=== PATIENT | female | born 1940 | race Caucasian/White ===

== ENCOUNTER 2018-03-18 15:15 | Emergency (ER) | payer MEDICARE, OTHER ==
[2018-03-18 15:47] VITALS: BP 146/90
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
== END 2018-03-18 17:20 | disposition short-term general hospital (02) ==
LOC: UCEAST 15:15
DX: R51 Headache (principal); M54.2 Cervicalgia; I10 Essential (primary) hypertension; Z88.1 Allergy status to other antibiotic agents; Z88.2 Allergy status to sulfonamides; Z88.8 Allergy status to other drugs, medicaments and biological substances
CPT/HCPCS: 99203; G0463

== ENCOUNTER 2018-03-18 17:42 | Emergency (ER) | payer MEDICARE, OTHER ==
--- NOTE | 2018-03-18 18:44 | RAD ---
EXAM: CT Head Without Intravenous Contrast CLINICAL HISTORY: 78 years old, female; Signs and symptoms; Other: Persistent RUVALCABA since am hrs today; Additional info: Head pain TECHNIQUE: Axial computed tomography images of the head/brain without intravenous contrast. All CT scans at this facility use at least one of these dose optimization techniques: automated exposure control; mA and/or kV adjustment per patient size (includes targeted exams where dose is matched to clinical indication); or iterative reconstruction. COMPARISON: No relevant prior studies available. FINDINGS: Brain: There is low attenuation change in the white matter most consistent with chronic age related small vessel ischemic change. No acute territorial infarction is seen. These can be initially occult on head CT. No hemorrhage. Ventricles: No intracranial bleed, suspicious mass, or mass effect. Ventricles appear unremarkable. Bones/joints: Unremarkable. No acute fracture. Soft tissues: Unremarkable. Sinuses: Unremarkable as visualized. No acute sinusitis. Mastoid air cells: Unremarkable as visualized. No mastoid effusion. IMPRESSION: 1. No intracranial bleed, suspicious mass, or mass effect. Ventricles appear unremarkable. 2. There is low attenuation change in the white matter most consistent with chronic age related small vessel ischemic change. No acute territorial infarction is seen. These can be initially occult on head CT. To contact [facility] with a general question: [facility] - [phone] For direct physician to physician contact: Physician Hotline - [phone] [facility] ([facility] Facility ID #[id number])
[2018-03-18 18:51] LABS: ABS Basophils 0.1 10^3/ul (0-0.2); ABS Eosinophils 0.1 10^3/ul (0-0.6); ABS Lymphocytes 1.2 10^3/ul (1.0-4.8); ABS Monocytes 0.4 10^3/ul (0-0.8); ABS Neutrophils 4.1 10^3/ul (1.5-7.7); ABS Nucleated RBC 0 10^3/ul; Eosinophil % 1.8 % (0-6); Hematocrit 43 % (35-47); Hemoglobin 14.2 g/dl (12.0-16.0); Lymphocyte % 20.2 % (25-47); Mean Corpuscular HGB Conc 33 g/dl (31-36); Mean Corpuscular Hemoglobin 29 pg (27-31); Mean Corpuscular Volume 88 fL (80-97); Mean Platelet Volume 8.7 um3 (7.4-10.4); Nucleated Red Blood Cells % 0.1; Platelet Count 207 10^3/ul (150-450); Red Blood Count 4.82 10^6/ul (4.00-5.40); Red Cell Distribution Width 13 % (10.5-15); White Blood Count 5.9 10^3/ul (3.5-10.8)
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
[2018-03-18] MEDS ORDERED: Ketorolac INJ* 30 MG/ML 1 ML VIAL IV PUSH ONE (18:59)
[2018-03-18 19:07] LABS: EGFR Non-African American 60.1 (>60)
[2018-03-18 19:09] LABS: INR 0.97 (0.77-1.02)
[2018-03-18] MEDS ORDERED: NS 0.9% 1000 ML* 2,000 ML IV SCH (19:15)
[2018-03-18] MEDS ORDERED: Metoclopramide IV* 5 MG/ML 2 ML VIAL IV ONE (20:01)
[2018-03-18] MEDS ORDERED: diPHENhydraMINE PO* 50 MG PO ONE (20:01)
[2018-03-18] MEDS ORDERED: amLODIPine TAB* 5 MG PO ONE (20:02)
[2018-03-18 20:54] LABS: Urine Appearance Cloudy; Urine Blood 1+ (Negative); Urine Color Straw; Urine Ketones Trace (Negative); Urine Protein Negative (Negative); Urine Red Blood Cell Trace(0-2/hpf) (Absent); Urine Specific Gravity 1.006 (1.010-1.030); Urine Urobilinogen Negative (Negative); Urine White Blood Cell Trace(0-5/hpf) (Absent)
[2018-03-18] MEDS ORDERED: Losartan TAB* 25 MG PO ONE (21:15)
[2018-03-18] MEDS ORDERED: Cyclobenzaprine TAB* 10 MG PO ONE (21:16)
[2018-03-18] MEDS ORDERED: oxyCODONE/Acetamin 5/325 MG* TAB PO ONE (21:17)
[2018-03-18] MEDS ORDERED: ALPRAZolam TAB* 0.25 MG PO ONE (21:17)
[2018-03-18] MEDS ORDERED: Morphine VIAL* 10 MG/ML 1 ML VIAL IV ONE (21:59)
[2018-03-18] MEDS ORDERED: Morphine INJ* 4 MG/ML 1 ML SYRINGE (NEW SYRINGE VERSION) ONE (22:36)
[2018-03-18 22:50] VITALS: BP 133/86
== END 2018-03-18 22:48 | disposition home or self-care (01) ==
LOC: ED 17:42
DX: R51 Headache (principal); I10 Essential (primary) hypertension; Z88.1 Allergy status to other antibiotic agents; Z88.2 Allergy status to sulfonamides; Z88.8 Allergy status to other drugs, medicaments and biological substances; M54.2 Cervicalgia
CPT/HCPCS: 36415; 70450; 80053; 81003; 81015; 83605; 85025; 85610; 85652; 86140; 87086; 96374; 96375; 99284; A9270-GY; J1885; J2270; J2765

== ENCOUNTER 2018-09-09 11:16 | Observation (INO) | payer MEDICARE, OTHER ==
--- NOTE | 2018-09-09 11:53 | ED ---
HPI Chest Pain - HPI Summary HPI Summary: This patient is a 78 year old F presenting to [facility] accompanied by her son with a chief complaint of sudden lower jaw pain and chest pressure that woke her at 0300 today. Patient additionally reports mid back pain with this event. At 0300 she took 325 ASA and symptoms resolved. She reports recent illness for the past 9 days that she characterizes as fatigue and weakness with a mild cough. Symptoms are currently resolved. Denies SOB. Medications include Amlodipine and losartan. FMHx pertinent for IA in mother at age 50. Denies PMHx of DVT. - History of Current Complaint Chief Complaint: EDChestPainROMI Time Seen by Provider: 09/09/18 11:41 Hx Obtained From: Patient Onset/Duration: Started Hours Ago, Resolved Initial Severity: Severe Current Severity: None Pain Intensity: 0 Pain Scale Used: 0-10 Numeric Chest Pain Radiates: Yes Chest Pain Radiates To:: Back, Jaw Character: Pressure/Squeezing Aggravating Factor(s): Nothing Alleviating Factor(s): OTC Meds Associated Signs and Symptoms: Positive: Chest Pain, Weakness, Cough. Negative : Shortness of Breath - Allergy/Home Medications Allergies/Adverse Reactions: Allergies Allergy/AdvReac Type Severity Reaction Status Date / Time cefaclor [From Ceclor] Allergy Unknown Verified 09/09/18 11:19 Reaction Details lorazepam [From Ativan] Allergy Insomnia Verified 09/09/18 11:19 Sulfa (Sulfonamide Allergy Blisters Verified 09/09/18 11:19 Antibiotics) Home Medications: Home Medications Hydrocodone/Acetaminophen [Hydrocodone-Acetamin 5-325 mg] 1 - 2 tab PO Q4HR PRN MDD 8 09/09/18 [History Confirmed 09/09/18] Omeprazole 40 mg PO DAILY 09/09/18 [History Confirmed 09/09/18] PMH/Surg Hx/FS Hx/Imm Hx Previously Healthy: No Endocrine/Hematology History: Denies: Hx Anticoagulant Therapy, Hx Diabetes, Hx Thyroid Disease Cardiovascular History: Reports: Hx Hypertension Denies: Hx Pacemaker/ICD Comment Only: Other Cardiovascular Problems/Disorders - vericose vein right Respiratory History: Reports: Hx Chronic Bronchitis - while working, now retiired Denies: Hx Asthma, Hx Chronic Obstructive Pulmonary Disease (COPD) GI History: Denies: Hx Ulcer History: Reports: Hx Kidney Infection, Hx Kidney Stones, Other Problems/ Disorders - left kidney stone w/ stent placement Denies: Hx Renal Disease Musculoskeletal History: Reports: Hx Arthritis Sensory History: Reports: Hx Cataracts, Hx Contacts or Glasses Opthamlomology History: Reports: Hx Cataracts, Hx Contacts or Glasses Neurological History: Reports: Other Neuro Impairments/Disorders Denies: Hx Dementia, Hx Seizures Psychiatric History: Reports: Hx Anxiety Denies: Hx Substance Abuse - Surgical History Surgery Procedure, Year, and Place: Tonsillectomy - child. Appendectomy in ' s. kidney Stent placed 07/03/12, removed 07/07/12,. Vaginal cyst removed Infectious Disease History: No Infectious Disease History: Denies: Hx Clostridium Difficile, Hx Hepatitis, Hx Human Immunodeficiency Virus (HIV), Hx Shingles, Hx Tuberculosis, Traveled Outside the [place] in Last 30 Days - Family History Known Family History: Positive: Cardiac Disease - IA mother age 50, Hypertension - Social History Occupation: Retired Lives: Alone Alcohol Use: None Hx Substance Use: No Substance Use Type: Reports: None Hx Tobacco Use: No Smoking Status (MU): Never Smoked Tobacco Review of Systems Positive: Fatigue Positive: Chest Pain Positive: Cough. Negative: Shortness Of Breath Positive: Myalgia - jaw pain Positive: Weakness All Other Systems Reviewed And Are Negative: Yes Physical Exam - Summary Physical Exam Summary: GENERAL: Patient is a well-developed and nourished female who is lying comfortable in the stretcher. Patient is not in any acute respiratory distress. HEAD AND FACE: Normocephalic EYES: PERRLA, EOMI x 2. EARS: Hearing grossly intact. MOUTH: Oropharynx within normal limits. NECK: Supple, trachea is midline, no adenopathy, no JVD, no carotid bruit. CHEST: Symmetric, no tenderness at palpation LUNGS: Clear to auscultation bilaterally. No wheezing or crackles. CVS: Regular rate and rhythm, S1 and S2 present, no murmurs or gallops appreciated. ABDOMEN: Soft, non-tender. Bowel sounds are normal. No abdominal abnormal pulsations. EXTREMITIES: Full ROM in all major joints, no edema, no cyanosis or clubbing. NEURO: Alert and oriented x 3. No acute neurological deficits. Speech is normal and follows commands. SKIN: Dry and warm Triage Information Reviewed: Yes Vital Signs On Initial Exam: Initial Vitals Temp Pulse Resp BP Pulse Ox 96.9 F 78 14 144/93 98 09/09/18 11:19 09/09/18 11:19 09/09/18 11:19 09/09/18 11:19 09/09/18 11:19 Vital Signs Reviewed: Yes Diagnostics - Vital Signs Vital Signs Temp Pulse Resp BP Pulse Ox 09/09/18 11:19 96.9 F 78 14 144/93 98 - Laboratory Result Diagrams: 09/09/18 12:00 09/09/18 12:00 Lab Statement: Any lab studies that have been ordered have been reviewed, and results considered in the medical decision making process. - Radiology CXR Radiology Interpretation Completed By: Radiologist Summary of Radiographic Findings: IMPRESSION: No evidence for acute disease. ED provider has reviewed this report. - EKG 1138 Cardiac Rate: NL - 72 BPM EKG Rhythm: Sinus Rhythm EKG Comparison: No Significant Change Summary of EKG Findings: incomplete RBBB Chest Pain Course/Dx - Course Course Of Treatment: Pt is a 78 y/o F presenting with CP, mid back pain, and lower jaw pain that woke her at 0300 this date. Denies SOB. FMHx pertinent for IA in mother at age 50. Lab work is unremarkable. CXR is unremarkable. EKG shows NSR with incomplete RBBB. Case discussed with hospitalist, Dr. Davidson, who will admit patient. I discussed results with patient. The patient agrees with this plan. - Diagnoses Provider Diagnoses: Chest pain - Provider Notifications Discussed Care Of Patient With: Tani Davidson - hospitalist Time Discussed With Above Provider: 14:05 Instructed by Provider To: Admit As Inpatient Discharge - Sign-Out/Discharge Documenting (check all that apply): Patient Departure - ADMIT Patient Received Moderate/Deep Sedation with Procedure: No - Discharge Plan Disposition: ADMITTED TO [facility] Referrals: Jason Coelho MD [Primary Care Provider] - - Attestation Statements Document Initiated by Scribe: Yes Documenting Scribe: Courtney De La Cruz Provider For Whom Scribe is Documenting (Include Credential): Zack Reeves MD Scribe Attestation: Courtney Jimenez, scribed for Zack Reeves MD on 09/09/18 at 1406. Status of Scribe Document: Ready
[2018-09-09] MEDS ORDERED: NS 0.9% 1000 ML** 1,000 ML IV ONE (11:54)
[2018-09-09 12:11] LABS: ABS Basophils 0.1 10^3/ul (0-0.2); ABS Eosinophils 0.2 10^3/ul (0-0.6); ABS Lymphocytes 1.2 10^3/ul (1.0-4.8); ABS Monocytes 0.4 10^3/ul (0-0.8); ABS Neutrophils 4.3 10^3/ul (1.5-7.7); ABS Nucleated RBC 0 10^3/ul; Eosinophil % 3.1 %; Hematocrit 41 % (33-41); Hemoglobin 13.6 g/dL (12.0-16.0); Mean Corpuscular HGB Conc 33 g/dL (31-36); Mean Corpuscular Hemoglobin 29 pg (27-31); Mean Corpuscular Volume 89 fL (80-97); Mean Platelet Volume 9.2 fL (7.4-10.4); Nucleated Red Blood Cells % 0.1; Platelet Count 184 10^3/uL (150-450); Red Blood Count 4.61 10^6 /uL (3.70-4.87); Red Cell Distribution Width 14 % (10.5-15); White Blood Count 6.2 10^3/uL (3.5-10.8)
[2018-09-09 12:21] LABS: Activated Partial Thrombo Time 35.3 seconds (26.0-36.3); INR 0.86 (0.77-1.02)
[2018-09-09 12:27] LABS: Albumin 4.1 g/dL (3.2-5.2); Albumin/Globulin Ratio 1.8 (1-3); BUN/Creatinine Ratio 20.5 (8-20); Calcium 8.9 mg/dL (8.6-10.3); EGFR African American 75.6 (>60); EGFR Non-African American 62.5 (>60); Globulin 2.3 g/dL (2-4); Magnesium 2.2 mg/dL (1.9-2.7); Potassium 4.2 mmol/L (3.5-5.0); Total Bilirubin 0.3 mg/dL (0.2-1.0); Total Protein 6.4 g/dL (6.4-8.9)
[2018-09-09 12:28] LABS: Troponin I 0.01 ng/mL (<0.04)
[2018-09-09] MEDS ORDERED: Acetaminophen TAB* 325 MG PO ONE (13:14)
[2018-09-09] MEDS ORDERED: Acetaminophen TAB* 325 MG PO PRN (14:52)
[2018-09-09] MEDS ORDERED: Morphine 4 MG/ML VIAL (1 ml) 4 MG/ML VIAL IV PRN (15:04)
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
[2018-09-09] MEDS: HYDROcodone/ACETAMIN 5-325 MG* 1 TAB PO PRN ×2 (16:55→22:03)
[2018-09-09] MEDS: Heparin VIAL(*) 5000 UNITS/ML VIAL (FIVE THOUSAND) SUBCUT SCH (20:45)
[2018-09-09] MEDS: DICLOFENAC 1% TOPICAL SCH (20:45)
[2018-09-09] MEDS: Losartan TAB* 25 MG PO SCH (21:54)
[2018-09-10] MEDS: HYDROcodone/ACETAMIN 5-325 MG* 1 TAB PO PRN ×3 (03:27→22:44)
[2018-09-10] MEDS: ALPRAZolam TAB* 0.25 MG PO PRN (06:17)
[2018-09-10 06:27] LABS: Hematocrit 40 % (33-41); Hemoglobin 13.3 g/dL (12.0-16.0); Mean Corpuscular HGB Conc 33 g/dL (31-36); Mean Corpuscular Hemoglobin 29 pg (27-31); Mean Corpuscular Volume 89 fL (80-97); Mean Platelet Volume 9.4 fL (7.4-10.4); Platelet Count 167 10^3/uL (150-450); Red Blood Count 4.52 10^6 /uL (3.70-4.87); Red Cell Distribution Width 14 % (10.5-15); White Blood Count 4.7 10^3/uL (3.5-10.8)
[2018-09-10 06:42] LABS: Albumin 3.8 g/dL (3.2-5.2); Albumin/Globulin Ratio 1.8 (1-3); BUN/Creatinine Ratio 20.5 (8-20); Calcium 8.9 mg/dL (8.6-10.3); EGFR African American 93.8 (>60); EGFR Non-African American 77.5 (>60); Globulin 2.1 g/dL (2-4); Magnesium 2.1 mg/dL (1.9-2.7); Phosphorus 4.1 mg/dL (2.5-5.0); Potassium 3.7 mmol/L (3.5-5.0); Total Bilirubin 0.4 mg/dL (0.2-1.0); Total Protein 5.9 g/dL (6.4-8.9)
[2018-09-10] MEDS ORDERED: Losartan TAB* 25 MG PO SCH (09:00)
[2018-09-10] MEDS ORDERED: Aspirin TAB* 325 MG PO ONE (09:00)
[2018-09-10] MEDS: Pantoprazole TAB * 40 MG TAB PO SCH (09:11)
[2018-09-10] MEDS: amLODIPine TAB* 5 MG PO SCH (09:11)
[2018-09-10] MEDS: Heparin VIAL(*) 5000 UNITS/ML VIAL (FIVE THOUSAND) SUBCUT SCH ×3 (09:12→21:35)
--- NOTE | 2018-09-10 15:07 | PN ---
Subjective Date of Service: 09/10/18 Interval History: Pt seen and examined. Meds and labs reviewed. CC: N/A. Mentions she got anxious last time she had her stress test many years ago. Wonders whether there could be something to control her anxiety tomorrow; pt feels tired. ROS: Denied RUVALCABA/dizziness, F/C, N/V, CP, SOB, increased cough, sputum production , abd pain, diarrhea, constipation, dysuria, myalgias, arthralgias, throat pain , and new skin lesions. The rest of the 14 point ROS are unremarkable. PHYSICAL EXAM: GEN APPEARANCE: Awake, not in acute distress HEENT: NC/AT, PERRLA, moist oral mucosa, (-) throat erythema NECK: Soft, supple, (-) cervical LAD, (-)JVD HEART: S1S2 WNL, RRR, No MRG CHEST: CTA, BL, GAE, No W/R/R ABD: Soft, ND/NT, NABS 4x Q EXT: No C/C/E SKIN: Warm to touch PSYCH: No active psychosis, hallucinations, depression, SI/HI Objective Active Medications: Acetaminophen (Tylenol Tab*) 650 mg PO Q6H PRN PRN Reason: Pain/Fever Hydrocodone Bitart/Acetaminophen ([place] 5-325 Tab*) 1 tab PO Q4H PRN PRN Reason: PAIN Last Admin: 09/10/18 14:14 Dose: 1 tab Alprazolam (Xanax Tab*) 0.25 mg PO BID PRN PRN Reason: ANXIETY Last Admin: 09/10/18 06:17 Dose: 0.25 mg Amlodipine Besylate (Norvasc Tab*) 10 mg PO QAM [facility] Last Admin: 09/10/18 09:11 Dose: 10 mg Diclofenac Sodium (Voltaren 1% Gel (Nf)) 1 applic TOPICAL DAILY@2100 ASHISH; Protocol Last Admin: 09/09/18 20:45 Dose: 1 applic Heparin Sodium (Porcine) (Heparin Vial(*)) 5,000 units SUBCUT Q12HR [facility] Last Admin: 09/10/18 09:12 Dose: Not Given Lorazepam (Ativan Inj*) 0.5 mg IV PUSH ONCE [facility] Stop: 09/11/18 07:01 Losartan Potassium (Cozaar Tab*) 50 mg PO BEDTIME [facility] Last Admin: 09/09/18 21:54 Dose: 50 mg Morphine Sulfate (Morphine 4 Mg/Ml Vial (1 Ml)) 0.5 mg IV Q6H PRN PRN Reason: PAIN Pantoprazole Sodium (Protonix Tab*) 40 mg PO DAILY [facility] Last Admin: 09/10/18 09:11 Dose: 40 mg Vital Signs - 8 hr 09/10/18 09/10/18 09/10/18 07:19 08:17 11:44 Temperature 98.0 F 98.0 F Pulse Rate 65 62 Respiratory 16 16 16 Rate Blood Pressure 117/68 132/69 (mmHg) O2 Sat by Pulse 97 98 Oximetry 09/10/18 14:14 Temperature Pulse Rate Respiratory 18 Rate Blood Pressure (mmHg) O2 Sat by Pulse Oximetry Oxygen Devices in Use Now: None Result Diagrams: 09/10/18 05:59 09/10/18 05:59 Microbiology and Other Data: Microbiology 09/09/18 12:13 Aerobic Blood Culture - Preliminary Blood Venous No Growth Day 1 Anaerobic Blood Culture - Preliminary No Growth Day 1 Assess/Plan/Problems-Billing Assessment: - Patient Problems (1) Chest pain Current Visit: Yes Status: Acute Code(s): R07.9 - CHEST PAIN, UNSPECIFIED SNOMED Code(s): 01265192 Comment: -Atypical -Risk scores: LYUDMILA = 1, Heart =4 -Ruled out for ACS -For Pharmacologic stress test in AM (2) Anxiety Current Visit: Yes Status: Acute Code(s): F41.9 - ANXIETY DISORDER, UNSPECIFIED SNOMED Code(s): 45534593 Comment: -Continue Alprazolam -Will Give Ativan IV low dose hr prior to planned stress test -Check TSH in AM given complaint of feeling tired (3) HTN (hypertension) Current Visit: Yes Status: Acute Code(s): I10 - ESSENTIAL (PRIMARY) HYPERTENSION SNOMED Code(s): 72880352 Comment: -Well controlled -Continue current regimen (4) GERD (gastroesophageal reflux disease) Current Visit: Yes Status: Acute Code(s): K21.9 - GASTRO-ESOPHAGEAL REFLUX DISEASE WITHOUT ESOPHAGITIS SNOMED Code(s): 971590460 Comment: -Continue Pantoprazole (5) DVT prophylaxis Current Visit: Yes Status: Acute Code(s): TKE2813 - SNOMED Code(s): 963499761 Comment: -Continue Heparin SQ Status and Disposition: -As above
[2018-09-10] MEDS: DICLOFENAC 1% TOPICAL SCH (21:29)
[2018-09-10] MEDS: Losartan TAB* 25 MG PO SCH (21:32)
[2018-09-11 06:07] LABS: ABS Basophils 0.1 10^3/ul (0-0.2); ABS Eosinophils 0.2 10^3/ul (0-0.6); ABS Lymphocytes 1.6 10^3/ul (1.0-4.8); ABS Monocytes 0.4 10^3/ul (0-0.8); ABS Nucleated RBC 0 10^3/ul; Eosinophil % 4.4 %; Hematocrit 40 % (33-41); Hemoglobin 13.4 g/dL (12.0-16.0); Lymphocyte % 29.7 %; Mean Corpuscular HGB Conc 33 g/dL (31-36); Mean Corpuscular Hemoglobin 30 pg (27-31); Mean Corpuscular Volume 89 fL (80-97); Mean Platelet Volume 8.7 fL (7.4-10.4); Nucleated Red Blood Cells % 0; Platelet Count 186 10^3/uL (150-450); Red Blood Count 4.51 10^6 /uL (3.70-4.87); Red Cell Distribution Width 14 % (10.5-15); White Blood Count 5.3 10^3/uL (3.5-10.8)
[2018-09-11] MEDS: HYDROcodone/ACETAMIN 5-325 MG* 1 TAB PO PRN ×2 (06:10→12:29)
[2018-09-11] MEDS: ALPRAZolam TAB* 0.25 MG PO PRN (06:12)
[2018-09-11 06:23] LABS: Albumin 3.7 g/dL (3.2-5.2); Albumin/Globulin Ratio 1.6 (1-3); EGFR African American 76.6 (>60); EGFR Non-African American 63.3 (>60); Globulin 2.3 g/dL (2-4); Magnesium 2.2 mg/dL (1.9-2.7); Phosphorus 4.5 mg/dL (2.5-5.0); Potassium 3.8 mmol/L (3.5-5.0); Total Bilirubin 0.4 mg/dL (0.2-1.0)
[2018-09-11 06:42] LABS: TSH (Thyroid Stimulating Horm) 4.16 mcIU/mL (0.34-5.60)
[2018-09-11] MEDS ORDERED: LORazepam INJ* 2 MG/ML 1 ML VIAL IV PUSH SCH ×2 (07:00)
[2018-09-11] MEDS: amLODIPine TAB* 5 MG PO SCH (08:04)
[2018-09-11] MEDS: Pantoprazole TAB * 40 MG TAB PO SCH (08:04)
[2018-09-11] MEDS: Heparin VIAL(*) 5000 UNITS/ML VIAL (FIVE THOUSAND) SUBCUT SCH (08:04)
[2018-09-11] MEDS ORDERED: Ondansetron INJ* 2 MG/ML VIAL IV PRN (09:25)
[2018-09-11] MEDS ORDERED: Regadenoson* 0.4 MG/5 ML SYRINGE ONE (12:32)
[2018-09-11 15:48] VITALS: BP 142/73
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
== END 2018-09-11 16:40 | disposition home or self-care (01) | DRG 313 ==
LOC: ED 11:16 → MEDTELE 14:48 → INTOOBSV 09-11 15:41 → OBSVTOIN 09-11 15:41
PROVIDERS: ADMIT Student in an Organized Health Care Education/Training Program; ATTEND Student in an Organized Health Care Education/Training Program
DX: R07.89 Other chest pain (principal); I10 Essential (primary) hypertension; M19.90 Unspecified osteoarthritis, unspecified site; H26.9 Unspecified cataract; Z96.0 Presence of urogenital implants; F41.9 Anxiety disorder, unspecified; I83.91 Asymptomatic varicose veins of right lower extremity; E78.5 Hyperlipidemia, unspecified; J42 Unspecified chronic bronchitis; I45.10 Unspecified right bundle-branch block; K21.9 Gastro-esophageal reflux disease without esophagitis; Z87.442 Personal history of urinary calculi; Z88.2 Allergy status to sulfonamides; Z88.8 Allergy status to other drugs, medicaments and biological substances; Z82.49 Family history of ischemic heart disease and other diseases of the circulatory system
CPT/HCPCS: 36415; 71045; 78452; 80053; 83605; 83735; 83880; 84100; 84443; 84484; 85025; 85027; 85379; 85610; 85730; 87040; 93017; 96372; 96374; 96375; 96376; 99284; A9270-GY; A9502; G0378; G8978-GP-CI; G8979-GP-CI; G8980-GP-CI; J1644; J2785

== ENCOUNTER 2018-11-04 15:19 | Emergency (ER) | payer MEDICARE, OTHER ==
[2018-11-04 15:32] VITALS: BP 145/81
--- NOTE | 2018-11-04 15:36 | UC ---
Complaint Female HPI - HPI Summary HPI Summary: 78 yo female presents with bladder pressure and urinary frequency for the last 3 days. She has had UTIs in the past and states this feels the same. She states that she has many allergies, but macrobid usually works well and she tolerates this well too. Denies fever, chills, abdominal pain, n/v, flank pain. - History Of Current Complaint Chief Complaint: UCGU Stated Complaint: UTI Time Seen by Provider: 11/04/18 15:36 Hx Obtained From: Patient Onset/Duration: Gradual Onset Severity Initially: Mild Severity Currently: Mild Pain Intensity: 2 Pain Scale Used: 0-10 Numeric - Allergies/Home Medications Allergies/Adverse Reactions: Allergies Allergy/AdvReac Type Severity Reaction Status Date / Time amoxicillin Allergy Unknown Verified 11/04/18 15:33 Reaction Details cefaclor [From Ceclor] Allergy Unknown Verified 09/09/18 11:19 Reaction Details cephalexin Allergy Unknown Verified 11/04/18 15:33 Reaction Details latex Allergy Unknown Verified 11/04/18 15:33 Reaction Details Sulfa (Sulfonamide Allergy Blisters Verified 09/09/18 11:19 Antibiotics) lorazepam [From Ativan] AdvReac Insomnia Verified 11/04/18 15:33 vancomycin AdvReac red man Verified 11/04/18 15:33 syndrome Home Medications: Home Medications traMADol TAB* [Ultram*] 50 mg PO Q6HR PRN 11/04/18 [History Confirmed 11/04/18] PMH/Surg Hx/FS Hx/Imm Hx - Additional Past Medical History Additional PMH: Chronic pain Endocrine History: Dyslipidemia Cardiovascular History: Hypertension GI/ History: Gastroesophageal Reflux Psychological History: Anxiety Other History Of: Negative For: Anticoagulant Therapy - Surgical History Surgical History: Yes Surgery Procedure, Year, and Place: Tonsillectomy - child. Appendectomy in . kidney Stent placed 07/03/12, removed 07/07/12,. Vaginal cyst removed. left arm fx w/ screws - 2015. left arm surgery, screws replaced - September 2018 - Family History Known Family History: Positive: Cardiac Disease - [place] mother age 50, Hypertension - Social History Occupation: Retired Alcohol Use: None Substance Use Type: None Smoking Status (MU): Never Smoked Tobacco - Immunization History Most Recent Tetanus Shot: unsure Review of Systems All Other Systems Reviewed And Are Negative: Yes Constitutional: Positive: Negative Skin: Positive: Negative Respiratory: Positive: Negative Cardiovascular: Positive: Negative Genitourinary: Positive: Frequency, Urgency Neurological: Positive: Negative Psychological: Positive: Negative Physical Exam - Summary Physical Exam Summary: GENERAL: NAD. WDWN. No pain distress. SKIN: No rashes, sores, lesions, or open wounds. NECK: Supple. Nontender. No lymphadenopathy. CHEST: CTAB. No r/r/w. No accessory muscle use. Breathing comfortably and in no distress. CV: RRR. Without m/r/g. Pulses intact. Cap refill <2seconds ABDOMEN: Soft. NTTP. No distention or guarding. No CVA tenderness. Bowel sounds present NEURO: Alert. PSYCH: Age appropriate behavior. Triage Information Reviewed: Yes Vital Signs: Initial Vital Signs Temp 98 F 11/04/18 15:27 Pulse 77 11/04/18 15:27 Resp 16 11/04/18 15:27 BP 145/81 11/04/18 15:27 Pulse Ox 98 11/04/18 15:27 Laboratory Tests 11/04/18 15:50 POC Urine Color Yellow POC Urine Clarity Clear POC Urine pH 6.5 POC Ur Specif Phillips 1.010 POC Urine Protein Negative POC Ur Glucose (UA) Negative POC Urine Ketones Negative POC Urine Blood Trace-intact A POC Urine Nitrite Negative POC Urine Bilirubin Negative POC Urine Urobilinogen 0.2 POC U Leukocyte Esteras Trace A Vital Signs Reviewed: Yes Complaint Female Dx - Course Course Of Treatment: UA with trace leuks. Will treat as UTI with macrobid and send urine for culture. - Differential Dx/Diagnosis Provider Diagnosis: UTI (urinary tract infection) Discharge - Sign-Out/Discharge Documenting (check all that apply): Patient Departure All imaging exams completed and their final reports reviewed: No Studies - Discharge Plan Condition: Stable Disposition: HOME Prescriptions: Nitrofurantoin Monohyd/M-Cryst [Macrobid 100 mg Capsule] 100 mg PO BID #14 cap Patient Education Materials: Urinary Tract Infection in Women (ED) Referrals: Jason Coelho MD [Primary Care Provider] - Additional Instructions: If you develop a fever, shortness of breath, chest pain, new or worsening symptoms - please call your PCP or go to the ED immediately. Your blood pressure was slightly elevated at todays visit. Please see your primary provider within 4 weeks for recheck and re-evaluation. - Billing Disposition and Condition Condition: STABLE Disposition: Home
== END 2018-11-04 16:09 | disposition home or self-care (01) ==
LOC: UCEAST 15:19
DX: N39.0 Urinary tract infection, site not specified (principal); I10 Essential (primary) hypertension; K21.9 Gastro-esophageal reflux disease without esophagitis; F41.9 Anxiety disorder, unspecified; E78.5 Hyperlipidemia, unspecified; Z91.040 Latex allergy status
CPT/HCPCS: 81003; 87086; 99212; G0463

== ENCOUNTER 2018-11-07 15:01 | Emergency (ER) | payer MEDICARE, OTHER ==
[2018-11-07 15:15] VITALS: BP 169/84
--- NOTE | 2018-11-07 16:11 | UC ---
Complaint Female HPI - HPI Summary HPI Summary: PATIENT SEEN HERE 3 DAYS AGO AND TREATED FOR PRESUMPTIVE UTI WITH MACROBID. CULTURE WAS NEGATIVE. PATIENT STATES HER SYMPTOMS HAVE BECOME INCREASINGLY WORSE. SHE NOW HAS BACK PAIN AND CONTINUING FREQUENCY/URGENCY AND DYSURIA. NO FEVER BUT IS FEELING CHILLED. NO NAUSEA. - History Of Current Complaint Chief Complaint: UCGU Stated Complaint: UTI Time Seen by Provider: 11/07/18 15:18 Hx Obtained From: Patient Onset/Duration: Gradual Onset, Lasting Days, Still Present Timing: Constant Severity Initially: Moderate Severity Currently: Moderate Pain Intensity: 8 Pain Scale Used: 0-10 Numeric Character: Sharp, Burning Aggravating Factor(s): Urination Alleviating Factor(s): Nothing Associated Signs And Symptoms: Positive: Back Pain. Negative: Fever, Nausea - Allergies/Home Medications Allergies/Adverse Reactions: Allergies Allergy/AdvReac Type Severity Reaction Status Date / Time acetaminophen Allergy Unknown Verified 11/07/18 15:19 [From Tylenol-Codeine #3] Reaction Details amoxicillin Allergy Unknown Verified 11/07/18 15:19 Reaction Details candesartan Allergy Tinnitus Verified 11/07/18 15:19 cefaclor [From Ceclor] Allergy Unknown Verified 11/07/18 15:19 Reaction Details cephalexin Allergy Unknown Verified 11/07/18 15:19 Reaction Details ciprofloxacin Allergy Unknown Verified 11/07/18 15:19 Reaction Details codeine Allergy Unknown Verified 11/07/18 15:19 [From Tylenol-Codeine #3] Reaction Details latex Allergy Unknown Verified 11/07/18 15:19 Reaction Details Sulfa (Sulfonamide Allergy Blisters Verified 11/07/18 15:19 Antibiotics) sulfacetamide Allergy Rash Verified 11/07/18 15:19 lorazepam [From Ativan] AdvReac Insomnia Verified 11/07/18 15:19 vancomycin AdvReac red man Verified 11/07/18 15:19 syndrome Home Medications: Home Medications Hydrocodone/Acetaminophen [Hydrocodone-Acetamin 5-325 mg] 1 tab PO DAILY [History Confirmed 11/07/18] Tramadol HCl 50 mg PO DAILY 11/07/18 [History Confirmed 11/07/18] PMH/Surg Hx/FS Hx/Imm Hx Cardiovascular History: Hypertension Other History Of: Negative For: Anticoagulant Therapy - Surgical History Surgical History: Yes Surgery Procedure, Year, and Place: Tonsillectomy - child. Appendectomy in 20' . kidney Stent placed 07/03/12, removed 07/07/12,. Vaginal cyst removed. left arm fx w/ screws - 2015. left arm surgery, screws replaced - September 2018. bilateral ankle repair - Family History Known Family History: Positive: Cardiac Disease - [place] mother age 50, Hypertension - Social History Alcohol Use: None Substance Use Type: Prescribed Smoking Status (MU): Never Smoked Tobacco - Immunization History Most Recent Tetanus Shot: unsure Review of Systems All Other Systems Reviewed And Are Negative: Yes Constitutional: Positive: Chills Respiratory: Positive: Negative Cardiovascular: Positive: Negative Gastrointestinal: Positive: Negative Genitourinary: Positive: Dysuria, Frequency, Urgency Physical Exam Triage Information Reviewed: Yes Appearance: Well-Nourished, Pain Distress - LOOKS MODERATELY UNCOMFORTABLE Vital Signs: Initial Vital Signs Temp 98.2 F 11/07/18 15:08 Pulse 93 11/07/18 15:08 Resp 18 11/07/18 15:08 BP 169/84 11/07/18 15:08 Pulse Ox 97 11/07/18 15:08 Vital Signs Reviewed: Yes Eyes: Positive: Conjunctiva Clear ENT: Positive: Hearing grossly normal Neck: Positive: Supple Respiratory: Positive: No respiratory distress, No accessory muscle use Cardiovascular: Positive: Pulses Normal Abdomen Description: Positive: Soft, CVA Tenderness (R), Other: - SUPRAPUBIC TENDERNESS. Negative: CVA Tenderness (L), Distended, Guarding Musculoskeletal: Positive: No Edema Neurological: Positive: Alert Psychological: Positive: Age Appropriate Behavior Skin: Negative: Rashes Diagnostics - Radiology CT ABD/PELVIS W/O CONTRAST Radiology Interpretation Completed By: Radiologist Summary of Radiographic Findings: 1. NO RENAL CALCULI OR EVIDENCE FOR HYDRONEPHROSIS. 2. THERE IS THICKENING OF THE WALL OF THE URINARY BLADDER WITH ADJACENT INTERSTITIAL STRANDING SUGGESTING THE POSSIBILITY OF CYSTITIS. RECOMMEND CLINICAL CORRELATION. 3. MODERATE SIZE HIATAL HERNIA AND MODERATE GASTRIC DISTENTION. Complaint Female Dx - Course Course Of Treatment: NO LEUKOCYTES ON URINE DIP TODAY. SENT FOR CULTURE. CT SCAN OBTAINED WHICH SHOWED NO KIDNEY STONE BUT DID SHOW THICKENING OF THE WALL OF THE URINARY BLADDER WITH ADJACENT INTERSTITIAL STRANDING SUGGESTING THE POSSIBILITY OF CYSTITIS. GIVEN HER LACK OF RESPONSE TO THE MACROBID AN ALTERNATIVE URINARY ANTIBIOTIC WAS CONSIDERED HOWEVER GIVEN HER EXTENSIVE LIST OF ALLERGIES THE ONLY APPROPRIATE OPTION IS PLAIN TRIMETHOPRIM. MEDICATION SENT TO PHARMACY. ENCOURAGED TO STAY WELL-HYDRATED. PATIENT ADVISED TO CALL UROLOGY TOMORROW TO SCHEDULE A FOLLOW-UP APPOINTMENT. - Differential Dx/Diagnosis Provider Diagnosis: Cystitis Discharge - Sign-Out/Discharge Documenting (check all that apply): Patient Departure All imaging exams completed and their final reports reviewed: Yes - Discharge Plan Condition: Stable Disposition: HOME Prescriptions: Trimethoprim TAB* 100 mg PO BID #20 tab Patient Education Materials: Urinary Tract Infection in Women (ED) Referrals: Jason Coelho MD [Primary Care Provider] - 1 Week Imtiaz Wen MD [Medical Doctor] - 3 Days Additional Instructions: CT SCAN TODAY SHOWED CHANGES AROUND YOUR BLADDER CONCERNING FOR CYSTITIS. THIS IS TYPICALLY AN INFECTIOUS PROCESS. I DISCUSSED THIS WITH YOUR UROLOGIST AND GIVEN YOUR EXTENSIVE ALLERGIES HE RECOMMENDED YOU TAKE TRIMETHOPRIM TWICE DAILY. TAKE THE MEDICATION FOR THE FULL 10 DAYS. STOP THE MACROBID. CALL DR. WEN'S OFFICE TOMORROW MORNING TO SCHEDULE A FOLLOW-UP APPOINTMENT FOR THIS WEEK. GO TO THE ER WITHOUT FAIL IF YOU DEVELOP WORSENING PAIN, FEVER, NAUSEA, MEGHA BLOOD IN THE URINE OR ANY OTHER CONCERNING SYMPTOMS. YOUR BLOOD PRESSURE WAS ELEVATED TODAY. THIS MAY BE DUE TO YOUR ACUTE CONDITION. MONITOR AND FOLLOW-UP WITH YOUR PCP WITHIN 4 WEEKS IF IT HAS NOT RETURNED TO NORMAL. - Billing Disposition and Condition Condition: STABLE Disposition: Home
== END 2018-11-07 17:35 | disposition home or self-care (01) ==
LOC: UCEAST 15:01
DX: N30.90 Cystitis, unspecified without hematuria (principal); Z88.0 Allergy status to penicillin; Z88.1 Allergy status to other antibiotic agents; Z88.2 Allergy status to sulfonamides; I10 Essential (primary) hypertension
CPT/HCPCS: 74176; 81003; 87086; 99211; G0463

== ENCOUNTER 2018-11-12 11:51 | Emergency (ER) | payer MEDICARE, OTHER ==
--- NOTE | 2018-11-12 12:49 | ED ---
GI/ HPI - HPI Summary HPI Summary: The patient is a 78 y/o F presenting to [facility] with a chief complaint of low back pain and increased urinary frequency starting almost 10 ago with persistence after two visits and prescriptions for . She reports that she had gone to Urgent Care on 11/04, and she was diagnosed with a UTI. She went back on 11/07 because the pain had not dissipated, and she was diagnosed with cystitis and prescribed Trimethoprim by Dr. Gomez, who consulted with Dr. Wen due to the patient's allergies. A CT was done for the findings, and cultures came back negative. She has since not been feeling better although she is currently on her sixth day of the abx. She denies burning with urination. The pain is currently rated 7/10 in severity. She is scheduled for a cystoscopy on 12/05, but she states she cannot much longer with the pain. She has not taken pain medications this morning, but she has taken one 0.25mg Xanax. Hx of kidney infection, kidney stones with stent, HTN, chronic bronchitis, anxiety. Nonsmoker, no EtOH, no substance use. - History of Current Complaint Chief Complaint: EDUrogenitalProblems Time Seen by Provider: 11/12/18 12:36 Stated Complaint: NEED NEW ANTIBODIC Hx Obtained From: Patient Onset/Duration: Started Days Ago - 10, Still Present Timing: Lasting Days Severity: Mild Current Severity: Moderate Pain Intensity: 7 Location of Pain: Other - low back Pain Characteristics: Aching Associated Signs and Symptoms: Positive: Other: - POSITIVE: increased urinary frequency; NEGATIVE: burning with urination - Additional Pertinent History Primary Care Physician: [id number] - Allergy/Home Medications Allergies/Adverse Reactions: Allergies Allergy/AdvReac Type Severity Reaction Status Date / Time acetaminophen Allergy Unknown Verified 11/12/18 12:02 [From Tylenol-Codeine #3] Reaction Details amoxicillin Allergy Unknown Verified 11/12/18 12:02 Reaction Details candesartan Allergy Tinnitus Verified 11/12/18 12:02 cefaclor [From Ceclor] Allergy Unknown Verified 11/12/18 12:02 Reaction Details cephalexin Allergy Unknown Verified 11/12/18 12:02 Reaction Details ciprofloxacin Allergy Unknown Verified 11/12/18 12:02 Reaction Details codeine Allergy Unknown Verified 11/12/18 12:02 [From Tylenol-Codeine #3] Reaction Details Influenza Virus Vaccines Allergy Nausea And Verified 11/12/18 12:02 Vomiting latex Allergy Unknown Verified 11/12/18 12:02 Reaction Details Sulfa (Sulfonamide Allergy Blisters Verified 11/12/18 12:02 Antibiotics) sulfacetamide Allergy Rash Verified 11/12/18 12:02 lorazepam [From Ativan] AdvReac Insomnia Verified 11/12/18 12:02 vancomycin AdvReac red man Verified 11/12/18 12:02 syndrome PMH/Surg Hx/FS Hx/Imm Hx Endocrine/Hematology History: Denies: Hx Anticoagulant Therapy, Hx Diabetes, Hx Thyroid Disease Cardiovascular History: Reports: Hx Hypertension Denies: Hx Hypercholesterolemia, Hx Pacemaker/ICD, Hx Peripheral Vascular Disease Comment Only: Other Cardiovascular Problems/Disorders - vericose vein right Respiratory History: Reports: Hx Chronic Bronchitis - while working, now retiired Denies: Hx Asthma, Hx Chronic Obstructive Pulmonary Disease (COPD) GI History: Denies: Hx Ulcer History: Reports: Hx Kidney Infection, Hx Kidney Stones, Other Problems/ Disorders - left kidney stone w/ stent placement Denies: Hx Renal Disease Musculoskeletal History: Reports: Hx Arthritis Sensory History: Reports: Hx Cataracts, Hx Contacts or Glasses Denies: Hx Hearing Aid Opthamlomology History: Reports: Hx Cataracts, Hx Contacts or Glasses Neurological History: Reports: Other Neuro Impairments/Disorders Denies: Hx Dementia, Hx Seizures, Hx Transient Ischemic Attacks (TIA) Psychiatric History: Reports: Hx Anxiety Denies: Hx Substance Abuse - Surgical History Surgery Procedure, Year, and Place: Tonsillectomy - child. Appendectomy in ' s. kidney Stent placed 07/03/12, removed 07/07/12,. Vaginal cyst removed. left arm fx w/ screws - 2015. left arm surgery, screws replaced - September 2018. bilateral ankle repair Infectious Disease History: No Infectious Disease History: Denies: Hx Clostridium Difficile, Hx Hepatitis, Hx Human Immunodeficiency Virus (HIV), Hx Shingles, Hx Tuberculosis, Traveled Outside the [place] in Last 30 Days - Family History Known Family History: Positive: Cardiac Disease - [place] mother age 50, Hypertension Negative: Diabetes - Social History Alcohol Use: None Hx Substance Use: No Substance Use Type: Reports: Prescribed Hx Tobacco Use: No Smoking Status (MU): Never Smoked Tobacco Do You Chew or Dip Tobacco: No Have You Chewed or Dipped Tobacco in the LAST YEAR: No Have You Smoked in the Last Year: No Review of Systems Positive: frequency - increased . Negative: burning Positive: Other - low back pain All Other Systems Reviewed And Are Negative: Yes Physical Exam - Summary Physical Exam Summary: VITAL SIGNS: Reviewed. GENERAL: Patient is a well-developed and nourished female who is lying comfortable in the stretcher. Patient is not in any acute respiratory distress. HEAD AND FACE: No signs of trauma. No ecchymosis, hematomas or skull depressions. No sinus tenderness. EYES: PERRLA, EOMI x 2, No injected conjunctiva, no nystagmus. EARS: Hearing grossly intact. Ear canals and tympanic membranes are within normal limits. MOUTH: Oropharynx within normal limits. NECK: Supple, trachea is midline, no adenopathy, no JVD, no carotid bruit, no c- spine tenderness, neck with full ROM. CHEST: Symmetric, no tenderness at palpation LUNGS: Clear to auscultation bilaterally. No wheezing or crackles. CVS: Regular rate and rhythm, S1 and S2 present, no murmurs or gallops appreciated. ABDOMEN: Soft, non-tender. No signs of distention. No rebound no guarding, and no masses palpated. Bowel sounds are normal. EXTREMITIES: FROM in all major joints, no edema, no cyanosis or clubbing. NEURO: Alert and oriented x 3. No acute neurological deficits. Speech is normal and follows commands. SKIN: Dry and warm. Triage Information Reviewed: Yes Vital Signs On Initial Exam: Initial Vitals Temp Pulse Resp BP Pulse Ox 98.8 F 89 18 166/93 95 11/12/18 11:56 11/12/18 11:56 11/12/18 11:56 11/12/18 11:56 11/12/18 11:56 Vital Signs Reviewed: Yes Diagnostics - Vital Signs Vital Signs Temp Pulse Resp BP Pulse Ox 11/12/18 11:56 98.8 F 89 18 166/93 95 - Laboratory Result Diagrams: 11/12/18 12:49 11/12/18 12:49 Lab Statement: Any lab studies that have been ordered have been reviewed, and results considered in the medical decision making process. Re-Evaluation - Re-Evaluation First Eval Re-Evaluation Time: 14:00 Change: Improved Comment: I discussed discharge with the patient. She is feeling better. GIGU Course/Dx - Course Assessment/Plan: The patient is a 78 y/o F presenting to [facility] with a chief complaint of low back pain and increased urinary frequency starting almost 10 ago with persistence after two visits and prescriptions for . She reports that she had gone to Urgent Care on 11/04, and she was diagnosed with a UTI. She went back on 11/07 because the pain had not dissipated, and she was diagnosed with cystitis and prescribed Trimethoprim by Dr. Gomez, who consulted with Dr. Wen due to the patient's allergies. A CT was done for the findings , and cultures came back negative. She has since not been feeling better although she is currently on her sixth day of the abx. She denies burning with urination. The pain is currently rated 7/10 in severity. She is scheduled for a cystoscopy on 12/05, but she states she cannot much longer with the pain. She has not taken pain medications this morning, but she has taken one 0.25mg Xanax. Hx of kidney infection, kidney stones with stent, HTN, chronic bronchitis , anxiety. Nonsmoker, no EtOH, no substance use. Blood tests without any significant abnormality except for creatinine of 1.02, glucose of 129, and urinalysis with positive nitrates, therefore indicating a positive UTI. In the ED course, the patient was given IV fluids. I discussed the case with Dr. Wen, who is her urologist, and he recommends for the patient to be given a dose of gentamicin over 160 mg IV and discharge the patient home with a prescription for doxycycline 100 mg twice a day. At this point the patient will be discharged home on follow-up with Dr. Wen for further workup and management. I discussed all the findings and test results with the patient. Patient was instructed to return to the emergency room immediately if any of the symptoms return worsens. Plan of care was discussed with the patient and understands and agrees. All questions were answered at patient satisfaction. There were no further complaints or concerns. Lung exam before discharge: CTA B/ L. Good air exchange. No wheezing or crackles heard. CVS: S1 and S2 present. No murmurs appreciated. Patient is alert and oriented x 3. Patient is hemodynamically stable. Patient will be discharged home with follow up PCP in the next 2-3 days. - Diagnoses Provider Diagnoses: UTI (urinary tract infection) - Physician Notifications Discussed Care Of Patient With: Imtiaz Wen - urology Time Discussed With Above Provider: 12:52 Instructed by Provider To: Other - I discussed the case with Dr. Wen because he is aware of the patient's concerns to this point. He advises lab workup on the patient and a call back with results. At 1355, I spoke with Dr. Wen again, and he suggets IV gentamicin, and discharge home with doxycycline for UTI treatment. Discharge - Sign-Out/Discharge Documenting (check all that apply): Patient Departure - Patient will be discharged home. Patient Received Moderate/Deep Sedation with Procedure: No - Discharge Plan Condition: Stable Disposition: HOME Prescriptions: DOXYcycline CAP(*) [DOXYcycline 100MG CAP(*)] 100 mg PO BID #20 cap Patient Education Materials: Urinary Tract Infection in Women (DC) Referrals: Jason Coelho MD [Primary Care Provider] - 3 Days Additional Instructions: Please take medications as prescribed. Follow up with your primary care provider in 2-3 days. RETURN TO THE EMERGENCY DEPARTMENT FOR ANY NEW OR WORSENING SYMPTOMS. - Billing Disposition and Condition Condition: STABLE Disposition: Home - Attestation Statements Document Initiated by Sofya: Yes Documenting Scribe: Leila Garcia Provider For Whom Sofya is Documenting (Include Credential): Dr. Evelio Santos MD Scribe Attestation: Leila Jimenez scribed for Dr. Evelio Santos MD on 11/12/18 at 1520. Scribe Documentation Reviewed: Yes Provider Attestation: The documentation as recorded by the Leila apvon accurately reflects the service I personally performed and the decisions made by me, Dr. Evelio Santos MD Status of Scribe Document: Ready
[2018-11-12 12:58] LABS: ABS Eosinophils 0.1 10^3/ul (0-0.6); ABS Lymphocytes 1.4 10^3/ul (1.0-4.8); ABS Monocytes 0.5 10^3/ul (0-0.8); ABS Neutrophils 5.6 10^3/ul (1.5-7.7); Eosinophil % 1.3 %; Hematocrit 41 % (35-47); Hemoglobin 13.7 g/dL (12.0-16.0); Lymphocyte % 18.1 %; Mean Corpuscular HGB Conc 34 g/dL (31-36); Mean Corpuscular Hemoglobin 30 pg (27-31); Mean Corpuscular Volume 89 fL (80-97); Mean Platelet Volume 9.1 fL (7.4-10.4); Platelet Count 238 10^3/uL (150-450); Red Cell Distribution Width 14 % (10-15); White Blood Count 7.6 10^3/uL (3.5-10.8)
[2018-11-12 13:15] LABS: Albumin 4.3 g/dL (3.2-5.2); Albumin/Globulin Ratio 1.6 (1-3); BUN/Creatinine Ratio 14.7 (8-20); C Reactive Protein 2.28 mg/L (<8.01); Calcium 9.5 mg/dL (8.6-10.3); EGFR African American 63.8 (>60); EGFR Non-African American 52.7 (>60); Globulin 2.7 g/dL (2-4); Total Bilirubin 0.4 mg/dL (0.2-1.0)
[2018-11-12 13:24] LABS: Urine Appearance Clear; Urine Bacteria Absent (Absent); Urine Bilirubin Negative (Negative); Urine Blood 1+ (Negative); Urine Color Amber; Urine Glucose Negative (Negative); Urine Ketones Negative (Negative); Urine Nitrite Positive (Negative); Urine Protein Negative (Negative); Urine Red Blood Cell Trace(0-2/hpf) (Absent); Urine Specific Gravity 1.009 (1.010-1.030); Urine Urobilinogen Positive (Negative); Urine White Blood Cell Trace(0-5/hpf) (Absent)
[2018-11-12] MEDS ORDERED: Gentamicin ADULT (*) 160 MG in NS 0.9% 100 ML* 100 ML IVPB ONE (13:57)
[2018-11-12 15:52] VITALS: BP 146/93
== END 2018-11-12 15:52 | disposition home or self-care (01) ==
LOC: ED 11:51
DX: N39.0 Urinary tract infection, site not specified (principal); Z88.5 Allergy status to narcotic agent; Z88.2 Allergy status to sulfonamides; Z88.8 Allergy status to other drugs, medicaments and biological substances; Z88.1 Allergy status to other antibiotic agents; Z91.040 Latex allergy status
CPT/HCPCS: 36415; 80053; 81003; 81015; 83605; 85025; 86140; 87086; 96365; 96366; 99283; J1580

== ENCOUNTER 2018-12-10 01:24 | Emergency (ER) | payer MEDICARE, OTHER ==
[2018-12-10] MEDS ORDERED: Al Hydrox/Mg Hydrox/Simet LIQ* 30 ML UDC PO ONE (01:47)
[2018-12-10] MEDS ORDERED: Albuterol 2.5 MG/3 ML NEB.SOL* (0.083%) INH ONE (01:47)
[2018-12-10] MEDS ORDERED: Lidocaine 2% VISCOUS* 15 ML UDC PO ONE (01:47)
[2018-12-10] MEDS ORDERED: Famotidine TAB* 20 MG PO ONE (01:48)
--- NOTE | 2018-12-10 01:49 | ED ---
HPI Chest Pain - HPI Summary HPI Summary: This patient is a 78 year old F brought to ED via EMS with a chief complaint of chest burning since supper at 1800 today. Patient had a root beer float for supper. She took Tums, which did not help. The patient rates the pain 6/10 in severity. Symptoms aggravated by nothing. Symptoms alleviated by nothing. Patient reports clear, sticky mucus cough, tiredness, nausea, abdominal burning. Patient denies SOB, dizziness, lightheadedness, vomiting, diaphoresis. This patient was hospitalized back in August of this year with what sound to be fairly similar symptoms of chest discomfort. During that stay she had a nuclear stress test that was normal and was seen by Dr. Levi who felt that she did not have any sign of coronary disease. - History of Current Complaint Chief Complaint: EDChestPainROMI Time Seen by Provider: 12/10/18 01:32 Hx Obtained From: Patient Onset/Duration: Started Hours Ago - 1800 today, Still Present Timing: Constant Initial Severity: Moderate Current Severity: Moderate Pain Intensity: 6 Pain Scale Used: 0-10 Numeric Chest Pain Location: Diffuse Character: Burning, Cough, Productive Aggravating Factor(s): Nothing Alleviating Factor(s): Nothing Associated Signs and Symptoms: Positive: Negative - SOB, dizziness, lightheadedness, vomiting, diaphoresis, Chest Pain, Nausea, Productive Cough, Abdominal Pain - Burning - Additional Pertinent History Primary Care Physician: [id number] - Allergy/Home Medications Allergies/Adverse Reactions: Allergies Allergy/AdvReac Type Severity Reaction Status Date / Time acetaminophen Allergy Unknown Verified 12/10/18 05:12 [From Tylenol-Codeine #3] Reaction Details amoxicillin Allergy Unknown Verified 12/10/18 05:12 Reaction Details candesartan Allergy Tinnitus Verified 12/10/18 05:12 cefaclor [From Ceclor] Allergy Unknown Verified 12/10/18 05:12 Reaction Details cephalexin Allergy Unknown Verified 12/10/18 05:12 Reaction Details ciprofloxacin Allergy Unknown Verified 12/10/18 05:12 Reaction Details codeine Allergy Unknown Verified 12/10/18 05:12 [From Tylenol-Codeine #3] Reaction Details Influenza Virus Vaccines Allergy Nausea And Verified 12/10/18 05:12 Vomiting latex Allergy Unknown Verified 12/10/18 05:12 Reaction Details Sulfa (Sulfonamide Allergy Blisters Verified 12/10/18 05:12 Antibiotics) sulfacetamide Allergy Rash Verified 12/10/18 05:12 lorazepam [From Ativan] AdvReac Insomnia Verified 12/10/18 05:12 vancomycin AdvReac red man Verified 12/10/18 05:12 syndrome PMH/Surg Hx/FS Hx/Imm Hx Endocrine/Hematology History: Denies: Hx Anticoagulant Therapy, Hx Diabetes, Hx Thyroid Disease Cardiovascular History: Reports: Hx Hypertension Denies: Hx Hypercholesterolemia, Hx Pacemaker/ICD, Hx Peripheral Vascular Disease Comment Only: Other Cardiovascular Problems/Disorders - vericose vein right Respiratory History: Reports: Hx Chronic Bronchitis - while working, now retiired Denies: Hx Asthma, Hx Chronic Obstructive Pulmonary Disease (COPD) GI History: Denies: Hx Ulcer History: Reports: Hx Kidney Infection, Hx Kidney Stones, Other Problems/ Disorders - left kidney stone w/ stent placement Denies: Hx Renal Disease Musculoskeletal History: Reports: Hx Arthritis Sensory History: Reports: Hx Cataracts, Hx Contacts or Glasses Denies: Hx Hearing Aid Opthamlomology History: Reports: Hx Cataracts, Hx Contacts or Glasses Neurological History: Reports: Other Neuro Impairments/Disorders Denies: Hx Dementia, Hx Seizures, Hx Transient Ischemic Attacks (TIA) Psychiatric History: Reports: Hx Anxiety Denies: Hx Substance Abuse - Surgical History Surgery Procedure, Year, and Place: Tonsillectomy - child. Appendectomy in . kidney Stent placed 07/03/12, removed 07/07/12,. Vaginal cyst removed. left arm fx w/ screws - 2015. left arm surgery, screws replaced - September 2018. bilateral ankle repair Infectious Disease History: No Infectious Disease History: Denies: Hx Clostridium Difficile, Hx Hepatitis, Hx Human Immunodeficiency Virus (HIV), Hx Shingles, Hx Tuberculosis, Traveled Outside the [place] in Last 30 Days - Family History Known Family History: Positive: Cardiac Disease - [place] mother age 50, Hypertension Negative: Diabetes - Social History Alcohol Use: None Hx Substance Use: No Substance Use Type: Reports: Prescribed Hx Tobacco Use: No Smoking Status (MU): Never Smoked Tobacco Have You Smoked in the Last Year: No Review of Systems Negative: Skin Diaphoresis Positive: Chest Pain - Burning Positive: Cough. Negative: Shortness Of Breath Positive: Nausea. Negative: Vomiting Neurological: Negative - Dizziness, lightheadedness, Other - Tiredness All Other Systems Reviewed And Are Negative: Yes Physical Exam - Summary Physical Exam Summary: Appearance: Well-appearing, Well-nourished, lying in bed comfortable Skin: Warm, dry, no obvious rash Eyes: sclera anicteric, no conjunctival pallor ENT: mucous membranes moist Neck: deferred Respiratory: expiratory wheezing on the right Cardiovascular: Appears well perfused, pulses are nml Abdomen: deferred Musculoskeletal: Moving all 4 extremities without obvious discomfort Neurological: Awake and alert, mentation is normal, speech is fluent and appropriate Psychiatric: affect is normal, does not appear anxious or depressed Triage Information Reviewed: Yes Vital Signs On Initial Exam: Initial Vitals Resp 18 12/10/18 01:34 Vital Signs Reviewed: Yes Diagnostics - Vital Signs Vital Signs Temp Pulse Resp BP Pulse Ox 12/10/18 01:40 97.4 F 88 16 163/94 97 12/10/18 01:35 78 18 163/94 94 12/10/18 01:34 18 - Laboratory Result Diagrams: 12/10/18 02:00 12/10/18 02:00 Lab Statement: Any lab studies that have been ordered have been reviewed, and results considered in the medical decision making process. - Radiology CXR Radiology Interpretation Completed By: ED Physician Summary of Radiographic Findings: No acute processes, pending official radiology report. - EKG 0128 Cardiac Rate: NL - 83 BPM EKG Rhythm: Sinus Rhythm ST Segment: Normal Ectopy: None Summary of EKG Findings: EKG at 0128 revealed NSR at 83 BPM, no STEMI. P waves, QRS complex and T waves are within normal limits, T waves and intervals are normal, no ischemic changes. This is a normal EKG. Re-Evaluation - Re-Evaluation First Eval Comment: Discussed results with patient. Patient reports a RUVALCABA now and is requesting Tramadol, since that is what she usually takes for RUVALCABA. Patient will be discharged home with dx of . Patient understands and agrees with this plan. Chest Pain Course/Dx - Course Course Of Treatment: This patient is a 78 year old F brought to ED via EMS with a chief complaint of chest burning since supper at 1800 today. EKG at 0128 revealed NSR at 83 BPM, no STEMI. P waves, QRS complex and T waves are within normal limits, T waves and intervals are normal, no ischemic changes. This is a normal EKG. In the ED course, patient received Maalox Plus, Ventolin, Pepcid, Xylocaine, Tylenol, and Ultram. Blood work obtained and she has negative troponin 2. CXR revealed no acute processes, pending official radiology report. Patient will be discharged home with dx of CP. Patient understands and agrees with this plan. - Diagnoses Provider Diagnoses: Chest pain Discharge - Sign-Out/Discharge Documenting (check all that apply): Patient Departure - Discharge Patient Received Moderate/Deep Sedation with Procedure: No - Discharge Plan Condition: Good Disposition: HOME Patient Education Materials: Chest Pain (ED) Referrals: Jason Coelho MD [Primary Care Provider] - 2 Days - Billing Disposition and Condition Condition: GOOD Disposition: Home - Attestation Statements Document Initiated by Scribe: Yes Documenting Scribe: Jason Cullen Provider For Whom Scribe is Documenting (Include Credential): Arpit Hough MD Scribe Attestation: Jason Jimenez, scribed for Arpit Hough MD on 12/10/18 at 0629. Status of Scribe Document: Viewed
[2018-12-10 02:23] LABS: Albumin 4.1 g/dL (3.2-5.2); Albumin/Globulin Ratio 1.6 (1-3); BUN/Creatinine Ratio 19.6 (8-20); Calcium 9.8 mg/dL (8.6-10.3); EGFR African American 71.8 (>60); EGFR Non-African American 59.4 (>60); Globulin 2.5 g/dL (2-4); Potassium 3.5 mmol/L (3.5-5.0); Total Bilirubin 0.4 mg/dL (0.2-1.0); Total Protein 6.6 g/dL (6.4-8.9)
[2018-12-10 02:25] LABS: Troponin I 0.02 ng/mL (<0.04)
[2018-12-10 02:40] LABS: ABS Eosinophils 0.1 10^3/ul (0-0.6); ABS Lymphocytes 0.9 10^3/ul (1.0-4.8); ABS Monocytes 0.5 10^3/ul (0-0.8); ABS Neutrophils 7.3 10^3/ul (1.5-7.7); Eosinophil % 1.3 %; Hematocrit 40 % (35-47); Hemoglobin 13.1 g/dL (12.0-16.0); Mean Corpuscular HGB Conc 33 g/dL (31-36); Mean Corpuscular Hemoglobin 29 pg (27-31); Mean Corpuscular Volume 88 fL (80-97); Mean Platelet Volume 9.4 fL (7.4-10.4); Platelet Count 191 10^3/uL (150-450); Red Blood Count 4.49 10^6 /uL (3.70-4.87); Red Cell Distribution Width 13 % (10-15); White Blood Count 8.8 10^3/uL (3.5-10.8)
[2018-12-10] MEDS ORDERED: Acetaminophen TAB* 325 MG PO ONE (04:04)
[2018-12-10] MEDS ORDERED: traMADol TAB* 50 MG PO ONE (05:19)
[2018-12-10] MEDS ORDERED: ALPRAZolam TAB* 0.25 MG PO ONE (06:44)
[2018-12-10 07:17] VITALS: BP 138/84
--- NOTE | 2018-12-10 07:49 | ED ---
Progress - Progress Note Progress Note: Patient's updated chest x-ray is positive for finding of sclerotic lesion of the proximal left humerus which was not seen on previous x-rays. Discussed with Dr. Cox. Attempted to contact patient to notify of these findings and advised follow-up with PCP outpatient. Left message to call. Spoke w/ ZACKARY Batres who is aware of results and plan. Re-Evaluation - Re-Evaluation First Eval Comment: Discussed results with patient. Patient reports a RUVALCABA now and is requesting Tramadol, since that is what she usually takes for RUVALCABA. Patient will be discharged home with dx of CP. Patient understands and agrees with this plan. Course/Dx - Course Course Of Treatment: This patient is a 78 year old F brought to ED via EMS with a chief complaint of chest burning since supper at 1800 today. EKG at 0128 revealed NSR at 83 BPM, no STEMI. P waves, QRS complex and T waves are within normal limits, T waves and intervals are normal, no ischemic changes. This is a normal EKG. In the ED course, patient received Maalox Plus, Ventolin, Pepcid, Xylocaine, Tylenol, and Ultram. Blood work obtained and she has negative troponin 2. CXR revealed no acute processes, pending official radiology report. Patient will be discharged home with dx of CP. Patient understands and agrees with this plan. - Diagnoses Provider Diagnoses: Chest pain Discharge - Sign-Out/Discharge Documenting (check all that apply): Post-Discharge Follow Up Patient Received Moderate/Deep Sedation with Procedure: No - Discharge Plan Condition: Good Disposition: HOME Patient Education Materials: Chest Pain (ED) Referrals: Jason Coelho MD [Primary Care Provider] - 2 Days - Billing Disposition and Condition Condition: GOOD Disposition: Home
== END 2018-12-10 07:17 | disposition home or self-care (01) ==
LOC: ED 01:24
DX: R07.89 Other chest pain (principal); M75.92 Shoulder lesion, unspecified, left shoulder; R51 Headache; R05 Cough; R11.0 Nausea; I10 Essential (primary) hypertension; Z88.5 Allergy status to narcotic agent; Z88.0 Allergy status to penicillin; Z88.2 Allergy status to sulfonamides; Z88.7 Allergy status to serum and vaccine; Z88.8 Allergy status to other drugs, medicaments and biological substances; Z88.6 Allergy status to analgesic agent; Z88.1 Allergy status to other antibiotic agents; Z91.040 Latex allergy status
CPT/HCPCS: 36415; 71046; 80053; 84484; 85025; 93005; 99283; A9270-GY

== ENCOUNTER 2019-01-09 15:18 | Emergency (ER) | payer MEDICARE, OTHER ==
[2019-01-09] MEDS ORDERED: DOXYcycline CAP(*) 100 MG PO ONE (16:29)
--- NOTE | 2019-01-09 16:30 | UC ---
UC General HPI - HPI Summary HPI Summary: 78-year-old woman comes in with chief complaint of dysuria and feeling like a need to urinate for 4 days. Patient reports she was seen in her primary care doctor at [facility] and they told her she had strep in her urine and asked her to go ahead and start Macrobid. Been taking the Macrobid is not improving. No fevers or chills. She has some suprapubic discomfort especially when she tries to urinate. She does report a headache. In October 2015 on 12 of November patient was seen in the emergency department and urology recommended IV gentamicin and doxycycline by mouth outpatient for a UTI. Patient reports she did get better after being treated with doxycycline. Patient has multiple antibiotic allergies. - History of Current Complaint Chief Complaint: UCGU Stated Complaint: FREQUENT URINATION WITH PRESSURE AND PAIN Time Seen by Provider: 01/09/19 15:53 Pain Intensity: 4 - Allergy/Home Medications Allergies/Adverse Reactions: Allergies Allergy/AdvReac Type Severity Reaction Status Date / Time acetaminophen Allergy Unknown Verified 12/10/18 05:12 [From Tylenol-Codeine #3] Reaction Details amoxicillin Allergy Unknown Verified 01/09/19 15:35 Reaction Details candesartan Allergy Tinnitus Verified 01/09/19 15:35 cefaclor [From Ceclor] Allergy Unknown Verified 01/09/19 15:35 Reaction Details cephalexin Allergy Unknown Verified 01/09/19 15:35 Reaction Details ciprofloxacin Allergy Unknown Verified 01/09/19 15:35 Reaction Details codeine Allergy Unknown Verified 01/09/19 15:35 [From Tylenol-Codeine #3] Reaction Details Influenza Virus Vaccines Allergy Nausea And Verified 01/09/19 15:35 Vomiting latex Allergy Unknown Verified 01/09/19 15:35 Reaction Details Sulfa (Sulfonamide Allergy Blisters Verified 01/09/19 15:35 Antibiotics) sulfacetamide Allergy Rash Verified 01/09/19 15:35 lorazepam [From Ativan] AdvReac Insomnia Verified 01/09/19 15:35 vancomycin AdvReac red man Verified 01/09/19 15:35 syndrome Home Medications: Home Medications Docusate CAP* [Colace Cap*] 100 mg PO BID PRN 01/09/19 [History Confirmed ] Escitalopram Oxalate [Lexapro 10 mg] 10 mg PO DAILY 01/09/19 [History Confirmed 01/09/19] Losartan TAB* [Cozaar TAB*] 50 mg PO DAILY 01/09/19 [History Confirmed 01/09/19] Omeprazole 40 mg PO DAILY 01/09/19 [History Confirmed 01/09/19] PMH/Surg Hx/FS Hx/Imm Hx Previously Healthy: Yes Cardiovascular History: Hypertension GI/ History: Gastroesophageal Reflux Psychological History: Anxiety Other History Of: Negative For: Anticoagulant Therapy - Surgical History Surgical History: Yes Surgery Procedure, Year, and Place: Tonsillectomy - child. Appendectomy in . kidney Stent placed 07/03/12, removed 07/07/12,. Vaginal cyst removed. left arm fx w/ screws - 2015. left arm surgery, screws replaced - September 2018. bilateral ankle repair - Family History Known Family History: Positive: Cardiac Disease - [place] mother age 50, Hypertension Negative: Diabetes - Social History Alcohol Use: None Substance Use Type: None Smoking Status (MU): Never Smoked Tobacco Have You Smoked in the Last Year: No - Immunization History Most Recent Tetanus Shot: unsure Review of Systems All Other Systems Reviewed And Are Negative: Yes Constitutional: Positive: Other - SEE HPI Skin: Positive: Negative Eyes: Positive: Negative ENT: Positive: Negative Respiratory: Positive: Negative Cardiovascular: Positive: Negative Gastrointestinal: Positive: Other - SEE HPI Genitourinary: Positive: Dysuria, Frequency, Urgency Motor: Positive: Negative Neurovascular: Positive: Negative Musculoskeletal: Positive: Negative Neurological: Positive: Negative Psychological: Positive: Anxious Is Patient Immunocompromised?: No Physical Exam Triage Information Reviewed: Yes Appearance: Well-Appearing, No Pain Distress, Well-Nourished Vital Signs: Initial Vital Signs Temp 98.1 F 01/09/19 15:28 Pulse 64 01/09/19 15:28 Resp 16 01/09/19 15:28 BP 131/102 01/09/19 15:28 Pulse Ox 97 01/09/19 15:28 Vital Signs Reviewed: Yes Eye Exam: Normal Eyes: Positive: Conjunctiva Clear Neck: Positive: Supple Respiratory: Positive: Lungs clear, Normal breath sounds, No respiratory distress Cardiovascular: Positive: RRR Abdomen Description: Positive: Soft, Other: - Mild tenderness to palpation suprapubic region there is no rebound.. Negative: CVA Tenderness (R), CVA Tenderness (L) Musculoskeletal: Positive: Strength Intact, ROM Intact Neurological: Positive: Alert Psychological: Positive: Age Appropriate Behavior Skin Exam: Normal Course/Dx - Course Course Of Treatment: The urine does have nitrites and leukocytes in it today. In October 2018 patient was treated with IV gentamicin and by mouth doxycycline and she improved. Urine cultures pending today. Will treat with doxycycline by mouth as we do not have gentamicin here. I let the patient know if she did not improve or she worsens she needs to go the emergency department. - Diagnoses Provider Diagnosis: UTI (urinary tract infection) Discharge - Sign-Out/Discharge Documenting (check all that apply): Patient Departure All imaging exams completed and their final reports reviewed: No Studies - Discharge Plan Condition: Stable Disposition: HOME Prescriptions: DOXYcycline CAP(*) [DOXYcycline 100MG CAP(*)] 100 mg PO BID #20 cap Phenazopyridine TAB* [Pyridium 100 mg TAB*] 100 mg PO TID PRN #6 tab PRN Reason: Pain - Mild Patient Education Materials: Urinary Tract Infection in Women (ED) Referrals: Jason Coelho MD [Primary Care Provider] - Additional Instructions: FOLLOW UP WITH YOUR DOCTOR. GO TO THE EMERGENCY DEPARTMENT IF YOUR CONDITION DOES NOT IMPROVE OR WORSENS; PAIN, FEVER YOU FEEL ILL OR ANY QUESTIONS OR CONCERNS. - Billing Disposition and Condition Condition: STABLE Disposition: Home
[2019-01-09] MEDS ORDERED: Phenazopyridine TAB* 100 MG PO ONE (16:32)
[2019-01-09 16:37] VITALS: BP 135/86
--- OUTSIDE RECORDS SUMMARY | 2019-01-09 23:23 | XMS REPORT | Summary of Care ---
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 [address] documented in this encounter Visit Diagnoses Diagnosis Urinary frequency - Primary Anxiety about health Recurrent major depressive disorder, in partial remission (HCC) Other hemorrhoids Epigastric pain Abdominal pain, epigastric documented in this encounter Insurance Payer Benefit Plan / Subscriber ID Effective Dates Phone Address Type Group MEDICARE MEDICARE PART A xxxxxxxxxxx 2007-Present Medicare & B AETNA COMMERCIAL AETNA xxxxxxxxxx 2010-Presen Aetna t Guarantor Name Account Type Relation to Date of Phone Billing Patient Address Estelle Almanzar Personal/Family 1940 [address] [facility] (Home) [address] [facility] (Work) [facility] documented as of this encounter
--- OUTSIDE RECORDS SUMMARY | 2019-01-09 23:23 | XMS REPORT | Summary of Care ---
:1940 Author Organization [facility] Address [address] [place] [address] Care Team Providers Name Role Phone Jason Coelho MD Primary Care Provider Reason for Visit Reason Comments Headache Encounter Details Date Type Department Care Team Description 01/03/2019 Office Visit [facility] - Unique Ontiveros, PT Headache in back of [place] Physical [address] [facility] head (Primary Dx) [place] [address] [address] [employer] [phone] [address] [place] [address] Allergies Active Allergy Reactions Severity Noted Date Comments Moxatag Rash 03/17/2016 Atacand Other 07/04/2007 tinnitus Cefaclor Monohydrate 07/04/2007 Keflex Rash 07/15/2015 Ciloxan THERAPEUTIC ACTIVITIES SERVICES WORKER Reaction 07/16/2016 Dizziness Latex Unknown Reaction 10/18/2018 Sulfacetamide Sodium 07/04/2007 Vancomycin Dermatologic Reaction Medium 10/12/2018 Red man syndrome documented as of this encounter (statuses as of 01/03/2019) Medications Medication Sig Dispensed Refills Start Date [...] per rectum FOUR Rectal Cream TIMES DAILY. 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 History of humerus fracture 08/03/2018 Overview: s/p ORIF [facility] 2017 Recurrent major depressive disorder, in partial remission 05/04/2018 History of urethral stricture 11/26/2015 Overview: S/p dilation X3 [place] Dr Wen 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 08/12/2015 Overview: [facility] winter 2014 Benign essential tremor 10/07/2014 Family history of coronary artery disease 08/03/2013 Overview: Mom myocardial infarction in her 50s Osteopenia 02/27/2009 Essential hypertension 02/11/2007 Mixed hyperlipidemia 02/11/2007 documented as of this encounter (statuses as of 01/03/2019) Resolved Problems Problem Noted Date Resolved Date Depression, major, in remission 09/19/2017 05/04/2018 Neck pain 02/11/2007 09/19/2017 Overview: Musculoskeletal chronic Depression with anxiety 02/11/2007 05/04/2018 documented as of this encounter (statuses as of 01/03/2019) Immunizations Name Administration Dates Next Due PNEUMOCOCCAL [...] of this encounter Last Filed Vital Signs Not on filedocumented in this encounter Progress Notes Unique Ontiveros, PT - 01/03/2019 8:00 AM EDT [facility] Treatment Note Outpatient Physical Therapy [facility] [address] [place] [id number] Treatment Number: 6 Referring Physician: Jason Coelho Primary Diagnosis: ICD-9-CM ICD-10-CM 1. Headache in back of head 784.0 R51 Time In: 0800 Time Out: 0830 Pain at Start of Care: 0/10 Pain at End of Care: 0/10 Subjective Comments: She is doing well with the neck and no headache. She did have to wipe off some of the biofreeze after last time it got too much Interventions: Therapeutic Exercises (60660) Total Minutes (all Therapeutic Exercise): 10 Exercise #1 Exercise Name: seated and /or supine cervical rotations Reason for Exercise: Flexibility;Functional Mobility;Pain Control Location/Body Area: Cervical Spine Exercise #2 Exercise Name: seated trap stretch Reason for Exercise: Functional Mobility Location/Body Area: Cervical Spine Exercise #3 Exercise Name: retraction up against the wall Reason for Exercise: Functional Mobility Location/Body Area: Cervical Spine Manual Therapy (23625) Soft Tissue Mobilization: Manual Tissue Mobilization Soft Tissue Mobilization Details: neck especially left neck Total Minutes (All Manual Therapy): 20 Assessment: I used adria butter and did DTM and reviewed her HEP. She will continue on her own and contact if any issues. Plan for Next Visit: Discharge Total UNTIMED Code Treatment Minutes: Total TIMED Code Treatment Minutes: 30 Total Treatment Minutes: 30 Author: Unique Ontiveros, PT 01/03/2019 08:21 documented in this encounter Plan of Treatment Date Type Specialty Care Team Description 01/11/2019 GI Procedure Gastroenterology Unique Batres MD [address] [place] [address] [phone] 01/11/2019 Hospital Encounter Anesthesiology Unique Batres MD Short Procedure [address] [place] [address] [phone] 01/11/2019 Surgery Unique Batres MD ENDOSCOPY UPPER GI [address] [place] [address] [phone] 01/19/2019 Office Visit Gastroenterology Kanika Johnston LEAD INJECTION MOLD TECHNICIAN [address] [address] 02/05/2019 Ocular Visit Optometry Sami Devries, OD [address] [address] Health Maintenance Due Date Last Done Comments [...] Type Problems Progress Blood Pressure Blood Pressure 130/70 No Turner, < 140/90 (12/29/2018 Jason R, 4:17 PM EDT) Note: Hypertension Care Plan Based on [...] Educational Resources. record my blood pressure results. [facility] [employer]nae is safe and secure way for you [...] Educational Resources: National Heart, Lung, & Blood [place] http://nhlbi.nih.gov/hbp/index.html The DASH Diet Eating Plan http://www.nhlbi.nih.gov/health/health-topics/ topics/dash/ Academy of Nutrition & DIetetics http://eatright.org National Smoking Cessation Site http://smokefree.gov Blood Pressure < Blood Pressure Essential 130/70 (12/29/2018 No Turner, 140/90 hypertension 4:17 PM EDT) Jason Godoy MD Note: Hypertension Care [...] Educational Resources. record my blood pressure results. Connect [employer] is safe and secure way for you [...] Educational Resources: National Heart, Lung, & Blood [place] http://nhlbi.nih.gov/hbp/index.html The DASH Diet Eating Plan http://www.nhlbi.nih.gov/health/health-topics/ topics/dash/ Academy of Nutrition & DIetetics http://eatright.org National Smoking Cessation Site http://smokefree.gov Blood Pressure < Blood Pressure 130/70 (12/29/2018 No Estelle Carmona FNP 150/90 4:17 PM EDT) Note: This is an individualized treatment [...] Weight loss vs. 18 mo Lifestyle 11 (12/29/2018 4:17 PM No Jason Coelho MD max (lbs) >=10 [...] of this encounter Implants Implanted Type Area Table Assembler Device Shelf Model / Serial Identifier Expiration Date / Lot Iol, [id number] 18.0 Diopter - [id number] Right: STORZ [id number] / Implanted: Qty: 1 on 04/05/2016 by Ravin Sena MD at [facility] [id number] / Iol, [id number] 19.0 Diopter - [id number] Left: Eye STORZ [id number] / Implanted: Qty: 1 on 04/26/2016 by Ravin Sena MD at [facility] [id number] / documented as of this encounter Results Not on filedocumented in this encounter Visit Diagnoses Diagnosis Headache in back of head - Primary Headache documented in this encounter Insurance Payer Benefit Plan / Subscriber ID Effective Dates Phone Address Type Group MEDICARE MEDICARE PART A xxxxxxxxxxx 2007-Present Medicare & B AETNA COMMERCIAL AETNA xxxxxxxxxx 2010-[facility] Aetna t Guarantor Name Account Type Relation to Date of Phone Billing Patient Address Estelle Almanzar Personal/Family 1940 [address] [facility] (Home) [address] [facility] (Work) [place] [id number] documented as of this encounter
--- NOTE | 2019-01-10 16:57 | UC ---
- Progress Note Progress Note: notify pt no UTI stop antibiotic see primary if still symptomatic Course/Dx - Diagnoses Provider Diagnoses: UTI (urinary tract infection) Discharge - Sign-Out/Discharge Documenting (check all that apply): Post-Discharge Follow Up All imaging exams completed and their final reports reviewed: No Studies - Discharge Plan Condition: Stable Disposition: HOME Prescriptions: DOXYcycline CAP(*) [DOXYcycline 100MG CAP(*)] 100 mg PO BID #20 cap Phenazopyridine TAB* [Pyridium 100 mg TAB*] 100 mg PO TID PRN #6 tab PRN Reason: Pain - Mild Patient Education Materials: Urinary Tract Infection in Women (ED) Referrals: Jason Coelho MD [Primary Care Provider] - Additional Instructions: FOLLOW UP WITH YOUR DOCTOR. GO TO THE EMERGENCY DEPARTMENT IF YOUR CONDITION DOES NOT IMPROVE OR WORSENS; PAIN, FEVER YOU FEEL ILL OR ANY QUESTIONS OR CONCERNS. - Billing Disposition and Condition Condition: STABLE Disposition: Home
== END 2019-01-09 16:46 | disposition home or self-care (01) ==
LOC: UCEAST 15:18
DX: N39.0 Urinary tract infection, site not specified (principal); I10 Essential (primary) hypertension; K21.9 Gastro-esophageal reflux disease without esophagitis; F41.9 Anxiety disorder, unspecified; Z91.040 Latex allergy status; Z88.0 Allergy status to penicillin; Z88.5 Allergy status to narcotic agent
CPT/HCPCS: 81002; 87086; 99212; A9270-GY; G0463

== ENCOUNTER 2019-02-04 12:35 | Emergency (ER) | payer MEDICARE, OTHER ==
--- OUTSIDE RECORDS SUMMARY | 2019-02-04 12:39 | XMS REPORT | Summary of Care ---
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 Encounter Details Date Type Department Care Team Description 01/31/2019 Office Visit [place] [facility] Jason Coelho, Gastritis, presence of bleeding unspecified, unspecified chronicity, unspecified gastritis type (Primary Dx); Medicine Proctaldanny castro; [address] [place] [address] [place] [address] [phone] Allergies Active Allergy Reactions Severity Noted Date Comments Moxatag Rash 03/17/2016 Atacand Other 07/04/2007 tinnitus Cefaclor Monohydrate 07/04/2007 Keflex Rash 07/15/2015 Ciloxan SLAB STRIPPER Reaction 07/16/2016 Dizziness Latex Unknown Reaction 10/18/2018 Sulfacetamide Sodium 07/04/2007 Vancomycin Dermatologic Reaction Medium 10/12/2018 Red man syndrome documented as of this encounter (statuses as of 01/31/2019) Medications Medication Sig Dispensed Refills Start Date End Date Status amLodipine (NORVASC) Take 1 Tab by 90 Tab 5 05/04/2018 05/04/2019 Active 10 MG Oral Tab mouth DAILY. losartan (COZAAR) 50 Take 1 Tab by 90 Tab 3 06/28/2018 Active MG Oral Tab mouth EVERY EVENING. acetaminophen Take 500 mg by 0 Active (TYLENOL) 500 MG Oral mouth EVERY SIX Tab HOURS NEEDED for Pain. Omeprazole 40 MG Oral take 1 capsule 30 Cap 5 07/26/2018 Active CAPSULE DELAYED by mouth once RELEASE daily diclofenac (VOLTAREN) 1 g by Topical 100 g 4 10/27/2018 Active 1 % Transdermal Gel route TWICE DAILY. docusate sodium (STOOL Take 200 mg by 0 Active SOFTENER) 100 MG Oral mouth DAILY. Cap polyethylene glycol Take 1 PKT by 30 Packet 1 12/02/2018 Active (MIRALAX) Oral Pack mouth DAILY. tramadol (ULTRAM) 50 Take 1 Tab by 60 Tab 1 12/04/2018 Active MG Oral Tab mouth EVERY EIGHT HOURS NEEDED (pain). Max Daily Amount: 150 mg. Additional information Patient taking differently: 50 mg Oral QHS, Reported on 01/19/2019 1:37 PM hydrocortisone (ANUSOL-HC) 2.5 % Place 1 Appl per rectum 2 Tube 0 2018 Active Rectal Cream FOUR TIMES DAILY. escitalopram (LEXAPRO) 10 MG Take 1 Tab by mouth 90 Tab 0 01/05/2019 Active Oral Tab DAILY. ALPRAZolam (XANAX) 0.25 MG Oral Take 1-2 Tabs by mouth 60 Tab 0 01/08/2019 Active TabIndications: Insomnia due to EVERY BEDTIME NEEDED other mental disorder (sleep). Max Daily Amount: 0.5 mg. ondansetron (ZOFRAN ODT) 4 MG Take 1 Tab by mouth 20 Tab 0 01/11/2019 Active Oral TABLET DISPERSIBLE EVERY SIX HOURS NEEDED (nausea). Naproxen Sodium 220 MG Oral Tab Take 1 Tab by mouth 0 Active DAILY NEEDED. Psyllium (METAMUCIL FIBER PO) Take by mouth DAILY. 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 01/31/2019 Depression, major, in remission 09/19/2017 05/04/2018 Neck pain 02/11/2007 09/19/2017 Overview: Musculoskeletal chronic Depression with anxiety 02/11/2007 05/04/2018 documented as of this encounter (statuses as of 01/31/2019) Immunizations Name Administration Dates Next Due PNEUMOCOCCAL [...] Sign Reading Time Taken Comments Blood Pressure 124/70 01/31/2019 3:04 PM EDT Pulse 68 01/31/2019 3:04 PM EDT Temperature - - Respiratory Rate - - Oxygen Saturation - - Inhaled Oxygen Concentration - - Weight 75.8 kg (167 lb) 01/31/2019 3:04 PM EDT Height 160 cm (5' 3") 01/31/2019 3:04 PM EDT Body Mass Index 29.58 01/31/2019 3:04 PM EDT documented in this encounter Progress Notes Jason Coelho MD - 01/31/2019 3:00 PM EDT Estelle Almanzar is a 78-y.o. female here for genito-urinary to esophago- gastroduodenoscopy and gastro-intestinal testing Esophago-gastroduodenoscopy showed gastritis she is on proton pump inhibitor and bland diet and she feels better She has proctalgia fugax seen by GI dept and the next step is physical therapy referral for kegel Exercises She asks for letter for jessica for documentation of bladder disease to get reimbursement for depends diapers this was done with her I spent 15 minutes with the patient, greater than half of this time in direct [id number] counseling addressing the current condition and plan of care. ICD-9-CM ICD-10-CM 1. Gastritis, presence of bleeding unspecified, unspecified chronicity, unspecified gastritis type 535.50 K29.70 2. Proctalgia fugax 564.6 K59.4 3. Overactive bladder 596.51 N32.81 Jason Coelho MDElectronically signed by Jason Coelho MD at 2018 3:28 PM EDTdocumented in this encounter Plan of Treatment Date Type Specialty Care Team Description 02/05/2019 Ocular Visit Optometry Sami Devries, OD [address] [address] [phone] 02/07/2019 Office Visit Physical Therapy Unique Ontiveros, PT [address] [place] [address] [phone] 02/14/2019 Office Visit Physical Therapy Unique Ontiveros, PT [address] [place] [address] 02/21/2019 Office [place] [address] [place] [address] [phone] Health Maintenance Due Date Last Done Comments [...] Type Problems Progress Blood Pressure Blood Pressure 124/70 No Monon, < 140/90 (01/31/2019 Jason Godoy, 3:04 PM EDT) Note: Hypertension Care Plan Based [...] Educational Resources. record my blood pressure results. K[employer] is safe and secure way for you [...] Educational Resources: National Heart, Lung, & Blood [place] http://nhlbi.nih.gov/hbp/index.html The DASH Diet Eating Plan http://www.nhlbi.nih.gov/health/health-topics/ topics/dash/ Academy of Nutrition & DIetetics http://eatright.org National Smoking Cessation Site http://smokefree.gov Blood Pressure < Blood Pressure Essential 124/70 (01/31/2019 No Monon, 140/90 hypertension 3:04 PM EDT) Jason Godoy MD Note: Hypertension [...] Educational Resources. record my blood pressure results. Jake is safe and secure way for you [...] Educational Resources: National Heart, Lung, & Blood [place] http://nhlbi.nih.gov/hbp/index.html The DASH Diet Eating Plan http://www.nhlbi.nih.gov/health/health-topics/ topics/dash/ Academy of Nutrition & DIetetics http://eatright.org National Smoking Cessation Site http://smokefree.gov Blood Pressure < Blood Pressure 124/70 (01/31/2019 No Estelle Carmona FNP 150/90 3:04 PM EDT) Note: This is an individualized [...] screen (PHQ-9) total score < 5 Depression Estelle June FNP Note: This is an individualized treatment (depression) goal for Estelle Almanzar: Displayed above is your goal for a depression screening (PHQ-9) score that would indicate good control of your depression. Keep a regular sleep schedule Lifestyle Estelle June FNP Note: This is an individualized lifestyle goal for Esetlle Almanzar: Please maintain a regular sleep schedule. This may help with some symptoms of depression. Weight loss vs. 18 mo Lifestyle 18 (01/31/2019 3:04 PM No Jason Coelho MD max (lbs) >= 10 EDT) Note: This is an individualized lifestyle [...] is an individualized self-management goal for Estelle Sharp Yohan: Please take all prescribed medications as directed. [...] of this encounter Implants Implanted Type Area Resaw Machine Operator Device Shelf Model / Serial Identifier Expiration Date / Lot Iol, [id number] 18.0 Diopter - [id number] Right: STORZ [id number] / Implanted: Qty: 1 on 04/05/2016 by Ravin Sena MD at [facility] [id number] / Iol, [id number] 19.0 Diopter - [id number] Left: Eye STORZ [id number] / Implanted: Qty: 1 on 04/26/2016 by Ravin Sena MD at [facility] [id number] / documented as of this encounter Results Not on filedocumented in this encounter Visit Diagnoses Diagnosis Gastritis, presence of bleeding unspecified, unspecified chronicity, unspecified gastritis type - Primary Proctalgia fugax Anal spasm Overactive bladder Hypertonicity of bladder documented in this encounter Insurance Payer Benefit Plan / Subscriber ID Effective Dates Phone Address Type Group MEDICARE MEDICARE PART A xxxxxxxxxxx 2007-Present Medicare & B AETNA COMMERCIAL AETNA xxxxxxxxxx 2010-[facility] Aetna t Guarantor Name Account Type Relation to Date of Phone Billing Patient Address Estelle Almanzar Personal/Family 1940 [address] [facility] [address]) [address] [place] [address] documented as of this encounter
--- OUTSIDE RECORDS SUMMARY | 2019-02-04 12:40 | XMS REPORT | Summary of Care ---
:1940 Author Organization [facility] Address [address] [facility] [place] [address] Care Team Providers Name Role Phone Susan Coelho MD Primary Care Provider Reason for Visit Auth/Cert Status Reason Specialty Diagnoses / Procedures Referred By Contact Referred To Contact Encounter Details Date Type Department Care Team Description 01/22/2019 Hospital Encounter [facility] June Montano MD Short Procedure [address] [place] [address] [place] [address] [phone] Allergies Active Allergy Reactions Severity Noted Date Comments Moxatag Rash 03/17/2016 [place]and Other 07/04/2007 tinnitus Cefaclor Monohydrate 07/04/2007 Keflex Rash 07/15/2015 [employer]iloxan [employer] Reaction 07/16/2016 Dizziness Latex Unknown Reaction 10/18/2018 Sulfacetamide Sodium 07/04/2007 Vancomycin Dermatologic Reaction Medium 10/12/2018 Red man syndrome documented as of this encounter (statuses as of 01/23/2019) Medications Medication Sig Dispensed Refills Start Date [...] SOFTENER) 100 MG Oral mouth DAILY. Cap Nitroglycerin (RECTIV) Place 1 Inch per 1 Tube 0 12/02/2018 Active 0.4 % Rectal Ointment rectum EVERY TWELVE HOURS NEEDED (rectal pain). [...] 2018 Active Rectal Cream FOUR TIMES DAILY. ALPRAZolam (XANAX) 0.25 MG Oral Take [...] Tab by mouth 0 Active DAILY NEEDED. 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 08/12/2015 Overview: [facility] winter 2014 Benign essential tremor 10/07/2014 Family history of coronary artery disease 08/03/2013 Overview: Mom myocardial infarction in her 50s Osteopenia 02/27/2009 Essential hypertension 02/11/2007 Mixed hyperlipidemia 02/11/2007 documented as of this encounter (statuses as of 01/23/2019) Resolved Problems Problem Noted Date Resolved Date Depression, major, in remission 09/19/2017 05/04/2018 Neck pain 02/11/2007 09/19/2017 Overview: Musculoskeletal chronic Depression with anxiety 02/11/2007 05/04/2018 documented as of this encounter (statuses as of 01/23/2019) Immunizations Name Administration Dates Next Due PNEUMOCOCCAL [...] Sign Reading Time Taken Comments Blood Pressure 140/75 01/22/2019 10:05 AM EDT Pulse 64 01/22/2019 10:05 AM EDT Temperature 36.4 01/22/2019 10:00 AM EDT C (97.6 F) Respiratory Rate 19 01/22/2019 9:45 AM EDT Oxygen Saturation 95% 01/22/2019 10:05 AM EDT Inhaled Oxygen Concentration - - Weight 76.2 kg (168 lb) 01/22/2019 8:26 AM EDT Height 160 cm (5' 3") 01/22/2019 8:26 AM EDT Body Mass Index 29.76 01/22/2019 8:26 AM EDT documented in this encounter Plan of Treatment Date Type Specialty Care Team Description 02/05/2019 Ocular Visit Optometry Sami Devries, OD [address] [place] [address] [phone] Name Type Priority Associated Diagnoses Date/Time TISSUE EXAM Lab Routine Gastroesophageal reflux disease, 01/22/2019 9:13 AM EDT esophagitis presence not specified Generalized abdominal pain Name Type Priority Associated Diagnoses Order Schedule UGI/EGD IN GI Diagnostic/Surgica Routine TOMORROW - GENERAL SUITE l Procedures USE for 1 Occurrences starting 01/22/2019 until 01/22/2019 TISSUE EXAM Lab Routine Gastroesophageal reflux *ONE TIME for 1 disease, esophagitis Occurrences presence not specified starting Generalized abdominal 01/22/2019, 1 pain completed Health Maintenance Due Date Last Done Comments [...] Type Problems Progress Blood Pressure Blood Pressure 140/75 No Lorman, < 140/90 (01/22/2019 Susan Godoy, 10:05 AM EDT) Note: Hypertension Care Plan Based [...] Educational Resources: National Heart, Lung, & Blood [place] http://nhlbi.nih.gov/hbp/index.html The DASH Diet Eating Plan http://www.nhlbi.nih.gov/health/health-topics/ topics/dash/ Academy of Nutrition & DIetetics http://eatright.org National Smoking Cessation Site http://smokefree.gov Blood Pressure < Blood Pressure Essential 140/75 (01/22/2019 No Lorman, 140/90 hypertension 10:05 AM EDT) Susan Godoy MD Note: Hypertension Care Plan Based [...] Educational Resources. record my blood pressure results. [employer] is safe and secure way for you [...] Educational Resources: National Heart, Lung, & Blood [place] http://nhlbi.nih.gov/hbp/index.html The DASH Diet Eating Plan http://www.nhlbi.nih.gov/health/health-topics/ topics/dash/ Academy of Nutrition & DIetetics http://eatright.org National Smoking Cessation Site http://smokefree.gov Blood Pressure < Blood Pressure 140/75 (01/22/2019 Estelle June FNP 150/90 10:05 AM EDT) Note: This is an individualized [...] depression. Weight loss vs. 18 mo Lifestyle 17 (01/22/2019 8:26 AM No Susan Coelho MD max (lbs) >= 10 EDT) [...] of this encounter Implants Implanted Type Area Shop Laborer Device Shelf Model / Serial Identifier Expiration Date / Lot Iol, [id number] 18.0 Diopter - [id number] Right: STORZ [id number] / Implanted: Qty: 1 on 04/05/2016 by Ravin Sena MD at [facility] [id number] / Iol, [id number] 19.0 Diopter - [id number] Left: Eye STORZ [id number] / Implanted: Qty: 1 on 04/26/2016 by Ravin Sena MD at [facility] [id number] / documented as of this encounter Procedures Procedure Name Priority Date/Time Associated Comments Diagnosis ENDOSCOPY UPPER Planned Trip to 01/22/2019 8:52 GI OR AM EDT UPPER GI Routine 01/22/2019 8:45 Results for this ENDOSCOPY REPORT AM EDT procedure are in the results section. documented in this encounter Results UPPER GI ENDOSCOPY REPORT (01/22/2019 8:45 AM EDT) Upper GI endoscopy [facility] [employer]OVATION __ Patient Name: Estelle Almanzar Procedure Date: 01/22/2019 8:45 AM Date of : 1940 Admit Type: Outpatient Age: 78 Room: 16 Gender: Female Note Status: Finalized Attending MD: JUNE MATHUR MD Instrument Name: [id number] GIF H 180 __ Procedure: Upper GI endoscopy Indications: Epigastric abdominal pain, Heartburn, Suspected gastro-esophageal reflux disease Providers: JUNE MATHUR MD, Radha Chester, RN (Nurse) Patient Profile: This is a 78 year old female. Referring MD: SUSAN COELHO MD (Referring MD) Medicines: See the Anesthesia note for documentation of the administered medications Complications: No immediate complications. __ Procedure: The patient's current medications and allergies were reviewed and recorded in the nurses notes. The patient was made aware of the risk of the procedure which can include: bleeding, infection, perforation, an adverse reaction to sedation, and a risk of missed lesions, among others. The patient appeared to understand. An opportunity for questions was provided, and an informed consent form was signed. The scope was passed under direct vision. Throughout the procedure, the patient's blood pressure, pulse EKG, and oxygen saturations were monitored continuously. The Endoscope was introduced through the mouth, and advanced to the second part of duodenum. The Z-line was located at: The upper GI endoscopy was accomplished without difficulty. The patient tolerated the procedure well. Findings: A large hiatal hernia was present. The examined esophagus was significantly tortuous. Patchy mild inflammation characterized by congestion (edema) and erythema was found in the gastric antrum. Biopsies were taken with a cold forceps for histology. The duodenal bulb, first portion of the duodenum and second portion of the duodenum were normal. Biopsies for histology were taken with a cold forceps for evaluation of celiac disease. NO EXPLANATION OF PATIENT'S ABDOMINAL PAIN ON EGD. Impression: - Large hiatal hernia. - Tortuous esophagus. - Gastritis. Biopsied. - Normal duodenal bulb, first portion of the duodenum and second portion of the duodenum. Biopsied. Recommendation: - Discharge patient to home (ambulatory). - Resume previous diet. - Continue present medications. - Await pathology results. - Return to referring physician. Procedure Code(s): --- Professional --- 07014, Esophagogastroduodenoscopy, flexible, transoral; with biopsy, single or multiple Diagnosis Code(s): --- Professional --- K44.9, Diaphragmatic hernia without obstruction or gangrene Q39.9, Congenital malformation of esophagus, unspecified K29.70, Gastritis, unspecified, without bleeding R10.13, Epigastric pain R12, Heartburn CPT copyright 2017 [employer]. All rights reserved. The codes documented in this report are preliminary and upon hamper maker review may be revised to meet current compliance requirements. June Mathur MD JUNE MATHUR MD 01/22/2019 9:23:38 AM This report has been signed electronically. Number of Addenda: 0 Note Initiated On: 01/22/2019 8:45 AM CC Letter to: SUSAN COELHO MD (CC) Estimated Blood Loss: Estimated blood loss was minimal. Specimen Performing Organization Address City/State/Zipcode Phone Number PROVATION documented in this encounter Visit Diagnoses Diagnosis Gastroesophageal reflux disease, esophagitis presence not specified Generalized abdominal pain Abdominal pain, generalized documented in this encounter Administered Medications Medication Order MAR Action Action Date Dose Rate Site lactated ringers IV Intravenous, at 100 mL/hr, PRU CONTINUOUS, Starting Tue01/22/19 at 0930, Until Tue01/22/19 at 1235, 4 Recovery normal saline IV New Bag 01/22/2019 8:50 AM EDT Intravenous, at 15 mL/hr, CONTINUOUS, Starting Tue01/22/19 at 0810, Until Tue01/22/19 at 1235 ondansetron (ZOFRAN) injection 4 mg 4 mg, Intravenous Push, PRU X1 PRN, 1 dose, Starting Tue01/22/19 at 0924, Until Tue01/22/19 at 1235, Nausea/Vomiting - IV - 1st line - If immediate effect required or patient cannot tolerate PO, 4 Recovery documented in this encounter Insurance Payer Benefit Plan / Subscriber ID Effective Dates Phone Address Type Group MEDICARE MEDICARE PART A xxxxxxxxxxx 2007-Present Medicare & B [employer] COMMERCIAL AETNA xxxxxxxxxx 2010-[facility] Aefabio t Guarantor Name Account Type Relation to Date of Phone Billing Patient Address Estelle Almanzar Personal/Family 1940 [address] (Home) [address] [address] (Work) [place] [id number] documented as of this encounter
--- OUTSIDE RECORDS SUMMARY | 2019-02-04 12:40 | XMS REPORT | Summary of Care ---
:1940 Author Organization [facility] Address [address] [facility] [place] [address] Care Team Providers Name Role Phone Jason Coelho MD Primary Care Provider Reason for Visit Reason Comments Follow Up Encounter Details Date Type Department Care Team Description 01/25/2019 Office Visit Kita Johnston, Hiatal hernia with Gastroenterology/Hepa Kanika Sol NP GERD (Primary Dx) tology 1 [facility] [address] [facility] [place] [address] [place] [address] [phone] Allergies Active Allergy Reactions Severity Noted Date Comments Moxatag Rash 03/17/2016 [place]and Other 07/04/2007 tinnitus Cefaclor Monohydrate 07/04/2007 Keflex Rash 07/15/2015 Ciloxan [employer]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 escitalopram (LEXAPRO) 10 Take 1 Tab by 90 Tab 0 01/05/2019 Active MG Oral Tab mouth DAILY. ALPRAZolam (XANAX) 0.25 Take 1-2 Tabs by 60 Tab 0 01/08/2019 Active MG Oral TabIndications: mouth EVERY Insomnia due to other BEDTIME NEEDED mental disorder (sleep). Max Daily Amount: 0.5 mg. ondansetron (ZOFRAN ODT) Take 1 Tab by 20 Tab 0 01/11/2019 Active 4 MG Oral TABLET mouth EVERY SIX DISPERSIBLE HOURS NEEDED (nausea). Naproxen Sodium 220 MG Take 1 Tab by 0 Active Oral Tab mouth DAILY NEEDED. Psyllium (METAMUCIL FIBER Take by mouth 0 Active PO) DAILY. Nitroglycerin (RECTIV) Place 1 Inch per 1 Tube 0 12/02/2018 01/25/2019 Discontinued 0.4 % Rectal Ointment rectum EVERY TWELVE HOURS NEEDED (rectal pain). 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 08/12/2015 Overview: [facility] winter 2014 Benign essential tremor 10/07/2014 Family history of coronary artery disease 08/03/2013 Overview: Mom myocardial infarction in her 50s Osteopenia 02/27/2009 Essential hypertension 02/11/2007 Mixed hyperlipidemia 02/11/2007 documented as of this encounter (statuses as of 01/25/2019) Resolved Problems Problem Noted Date Resolved Date Depression, major, in remission 09/19/2017 05/04/2018 Neck pain 02/11/2007 09/19/2017 Overview: Musculoskeletal chronic Depression with anxiety 02/11/2007 05/04/2018 documented as of this encounter (statuses as of 01/25/2019) Immunizations Name Administration Dates Next Due PNEUMOCOCCAL [...] Sign Reading Time Taken Comments Blood Pressure 122/82 01/25/2019 4:03 PM EDT Pulse 72 01/25/2019 4:03 PM EDT Temperature 37 01/25/2019 4:03 PM EDT C (98.6 F) Respiratory Rate - - Oxygen Saturation - - Inhaled Oxygen Concentration - - Weight 74.8 kg (165 lb) 01/25/2019 4:03 PM EDT Height 160 cm (5' 3") 01/25/2019 4:03 PM EDT Body Mass Index 29.23 01/25/2019 4:03 PM EDT documented in this encounter Patient Instructions Patient InstructionsKanika Johnston NP - 01/25/2019 3:40 PM EDT1. Continue the Omeprazole 2. See dietary instruction below 3. Follow up here as needed Diet for Gastritis SPEECH AND HEARING DIRECTOR: A diet for gastritis is a meal plan that limits foods that irritate your stomach. Certain foods mayworsen symptoms such as stomach pain, bloating, heartburn, or indigestion. Foods to limit or avoid: You may need to avoid acidic, spicy, or high-fat foods. Not all foods affect everyone the same way. You will need to learn which foods worsen your symptoms and limit those foods. The following are some foods that may worsen ulcer or gastritis symptoms: Beverages: Whole milk and chocolate milk Hot cocoa and cola Any beverage with caffeine Regular and decaffeinated coffee Peppermint and spearmint tea Green and black tea, with or without caffeine [place] and grapefruit juices Drinks that contain alcohol Spices and seasonings: Black and red pepper [place] powder Mustard seed and nutmeg Other foods: Dairy foods made from whole milk or cream Chocolate Spicy or strongly flavored cheeses, such as jalapeno or black pepper Highly seasoned, high-fat meats, such as sausage, salami, verde, ham, and cold cuts Hot chiles and peppers Tomato products, such as tomato paste, tomato sauce, or tomato juice Foods to include: Eat a variety of healthy foods from all the food groups. Eat fruits, vegetables, whole grains, and fat-free or low-fat dairy foods. Whole grains include whole-wheat breads, cereals, pasta, and brown rice. Choose lean meats, poultry (chicken and turkey), fish, beans, eggs, and nuts. A healthy meal plan is low in unhealthy fats, salt, and added sugar. Healthy fats include olive oil and canola oil. Ask your dietitian for more information about a healthy diet. Other helpful guidelines: Do not eat right before bedtime. Stop eating at least 2 hours before bedtime. Eat small, frequent meals. Your stomach may tolerate small, frequent meals better than large meals. 2016 [employer] Information is for End User's use only and may not be sold, redistributed or otherwise used for commercial purposes. All illustrations and images included in CareNotes are the copyrighted property of [employer] or [employer]. The above information is an first aid trainer only. It is not intended as medical advice for individual conditions or treatments. Talk to your doctor, nurse or pharmacist before following any medical regimen to see if it is safe and effective for you. documented in this encounter Progress Notes Kanika Johnston NP - 01/25/2019 3:40 PM EDT PATIENT: Estelle Almanzar : 1940 DATE OF SERVICE: 01/25/2019 REFERRING PRACTITIONER: Gualberto PRIMARY CARE PROVIDER: Jason Coelho CHIEF COMPLAINT: Chief Complaint Patient presents with Follow Up Subjective HISTORY OF PRESENT ILLNESS: Estelle Almanzar is an 78-y.o. female who presents for a follow-up visit after EGD which revealed ahiatal hernia tortuous esophagus and gastritis. She reports her stomach is feeling well in recent weeks, she is taking a daily PPI and eating a bland diet. She denies dysphagia. She has not lost weight. She denies melena, hematochezia, hematemesis, and coffee ground emesis. She was previously followed in the clinic with rectal pain, she reports this has subsided as well. Denies abdominal pain, dysphagia, fatigue, nausea, vomiting, melena, hamatemesis , hematochezia, constipation, diarrhea, jaundice, fevers, chills, night sweats, weight loss, easy bruising, chest pain, shortness of breath, dysuria, hematuria , pyuria, joint pains, acholic stools, dark urine or systemic pruritis. Current Outpatient Medications Medication Sig acetaminophen (TYLENOL) [...] (STOOL SOFTENER) 100 MG Oral Cap Take 200 mg by mouth DAILY. escitalopram (LEXAPRO) 10 MG Oral Tab Take 1 Tab by mouth DAILY. hydrocortisone (ANUSOL-HC) 2.5 % Rectal Cream Place 1 Appl per rectum FOUR TIMES DAILY. losartan (COZAAR) 50 MG Oral Tab Take 1 Tab by mouth EVERY EVENING. Naproxen Sodium 220 MG Oral Tab Take 1 Tab by mouth DAILY NEEDED. Omeprazole 40 MG Oral CAPSULE DELAYED RELEASE take 1 capsule by mouth once daily ondansetron (ZOFRAN ODT) 4 MG Oral TABLET DISPERSIBLE Take 1 Tab by mouth EVERY SIX HOURS NEEDED (nausea). polyethylene glycol (MIRALAX) Oral Pack Take 1 PKT by mouth DAILY. Psyllium (METAMUCIL FIBER PO) Take by mouth DAILY. tramadol (ULTRAM) 50 MG Oral Tab Take 1 Tab by mouth EVERY EIGHT HOURS NEEDED (pain). Max Daily Amount: 150 mg. (Patient taking differently: Take 50 mg by mouth EVERY BEDTIME.) No current facility-administered medications for this visit. 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 Objective OBJECTIVE: VITALS: BP 122/82 | Pulse 72 | Temp 98.6 F (37 C) | Ht 5' 3" (1.6 m ) | Wt 165 lb (74.8 kg) | BMI 29.23 kg/m Body mass index is 29.23 kg/m . GENERAL: alert, oriented, no acute distress. HEENT: No scleral icterus, MMM Psych: Affect normal Neck: no lymphadenopathy LUNGS: clear to auscultation bilaterally. HEART: regular rhythm, no murmurs, no gallops, no rubs. ABDOMEN: general exam: soft, non-tender, non-distended, without masses or organomegaly, normal active bowel sounds, Knowles's sign negative. Extrmities: no edema Skin: clear Neuro: gait normal, a&o x 3 RECTAL: exam deferred. IMPRESSION: ICD-9-CM ICD-10-CM 1. Hiatal hernia with GERD 530.81 K21.9 553.3 K44.9 Plan PLAN: Patient Instructions 1. Continue the Omeprazole 2. See dietary instruction below 3. Follow up here as needed Diet for Gastritis SPEECH AND HEARING DIRECTOR: A diet for gastritis is a meal plan that limits foods that irritate your stomach. Certain foods mayworsen symptoms such as stomach pain, bloating, heartburn, or indigestion. Foods to limit or avoid: You may need to avoid acidic, spicy, or high-fat foods. Not all foods affect everyone the same way. You will need to learn which foods worsen your symptoms and limit those foods. The following are some foods that may worsen ulcer or gastritis symptoms: Beverages: Whole milk and chocolate milk Hot cocoa and cola Any beverage with caffeine Regular and decaffeinated coffee Peppermint and spearmint tea Green and black tea, with or without caffeine [place] and grapefruit juices Drinks that contain alcohol Spices and seasonings: Black and red pepper [place] powder Mustard seed and nutmeg Other foods: Dairy foods made from whole milk or cream Chocolate Spicy or strongly flavored cheeses, such as jalapeno or black pepper Highly seasoned, high-fat meats, such as sausage, salami, verde, ham, and cold cuts Hot chiles and peppers Tomato products, such as tomato paste, tomato sauce, or tomato juice Foods to include: Eat a variety of healthy foods from all the food groups. Eat fruits, vegetables, whole grains, and fat-free or low-fat dairy foods. Whole grains include whole-wheat breads, cereals, pasta, and brown rice. Choose lean meats, poultry (chicken and turkey), fish, beans, eggs, and nuts. A healthy meal plan is low in unhealthy fats, salt, and added sugar. Healthy fats include olive oil and canola oil. Ask your dietitian for more information about a healthy diet. Other helpful guidelines: Do not eat right before bedtime. Stop eating at least 2 hours before bedtime. Eat small, frequent meals. Your stomach may tolerate small, frequent meals better than large meals. 2016 [employer]. Information is for End User's use only and may not be sold, redistributed or otherwise used for commercial purposes. All illustrations and images included in CareNotes are the copyrighted property of [employer] or [employer]. The above information is an first aid trainer only. It is not intended as medical advice for individual conditions or treatments. Talk to your doctor, nurse or pharmacist before following any medical regimen to see if it is safe and effective for you. Author: Kanika Johnston NP 01/25/2019 16:17 documented in this encounter Plan of Treatment Date Type Specialty Care Team Description 02/05/2019 Ocular Visit Optometry KayceSami eduardo, OD [address] [place] [address] [phone] Health Maintenance Due Date Last Done Comments [...] Type Problems Progress Blood Pressure Blood Pressure 122/82 No [place], < 140/90 (01/25/2019 Jason Godoy, 4:03 PM EDT) Note: Hypertension Care Plan Based [...] Educational Resources: National Heart, Lung, & Blood [place] http://nhlbi.nih.gov/hbp/index.html The DASH Diet Eating Plan http://www.nhlbi.nih.gov/health/health-topics/ topics/dash/ Academy of Nutrition & DIetetics http://eatright.org National Smoking Cessation Site http://smokefree.gov Blood Pressure < Blood Pressure Essential 122/82 (01/25/2019 No [place], 140/90 hypertension 4:03 PM EDT) Jason Godoy MD Note: Hypertension [...] Educational Resources. record my blood pressure results. [employer] is safe and secure way for you [...] Educational Resources: National Heart, Lung, & Blood [place] http://nhlbi.nih.gov/hbp/index.html The DASH Diet Eating Plan http://www.nhlbi.nih.gov/health/health-topics/ topics/dash/ Academy of Nutrition & DIetetics http://eatright.org National Smoking Cessation Site http://smokefree.gov Blood Pressure < Blood Pressure 122/82 (01/25/2019 No Estelle Carmona FNP 150/90 4:03 PM EDT) Note: This is an individualized [...] depression. Weight loss vs. 18 mo Lifestyle 20 (01/25/2019 4:03 PM No Jason Coelho MD max (lbs) [...] of this encounter Implants Implanted Type Area Sample Room Supervisor Device Shelf Model / Serial Identifier Expiration Date / Lot Iol, [id number] 18.0 Diopter - [id number] Right: JIMENEZ [id number] / Implanted: Qty: 1 on 04/05/2016 by Ravin Sena MD at [facility] [id number] / Iol, [id number] 19.0 Diopter - [id number] Left: Eye STORZ [id number] / Implanted: Qty: 1 on 04/26/2016 by Ravin Sena MD at [facility] [id number] / documented as of this encounter Results Not on filedocumented in this encounter Visit Diagnoses Diagnosis Hiatal hernia with GERD - Primary documented in this encounter Insurance Payer Benefit Plan / Subscriber ID Effective Dates Phone Address Type Group MEDICARE MEDICARE PART A xxxxxxxxxxx 2007-Present Medicare & B AETNA COMMERCIAL AETNA xxxxxxxxxx 2010-[facility] Aetna t Guarantor Name Account Type Relation to Date of Phone Billing Patient Address [place] Personal/Family 1940 [address] [facility] [facility] (Home) [address] [facility] (Work) [place] [address] documented as of this encounter
--- OUTSIDE RECORDS SUMMARY | 2019-02-04 12:40 | XMS REPORT | Summary of Care ---
:1940 Author Organization [facility] Address [address] [facility] [place] [address] Care Team Providers Name Role Phone Jason Coelho MD Primary Care Provider Reason for Referral Refer to Department Only (Routine) Status Reason Specialty Diagnoses / Referred By Referred To Procedures Contact Contact Pending Review Physical Therapy Diagnoses Rectal pain Kanika Johnston, SPRAY [employer] PAINTER [address] [facility] [place] [address] Reason for Visit Reason Comments Hemorrhoids Pt. complaining of worsening hemorrhoidal pain. Constipation Pt. also continues to have constipation. Encounter Details Date Type Department Care Team Description 01/19/2019 Office Visit [place] Rectal pain (Primary Gastroenterology/Hepa Kanika Sol NP Dx) tology [address] [facility] [address] [facility] [place] [address] [place] [address] [phone] Allergies Active Allergy Reactions Severity Noted Date Comments Moxatag Rash 03/17/2016 [place]and Other 07/04/2007 tinnitus Cefaclor Monohydrate 07/04/2007 Keflex Rash 07/15/2015 Ciloxan AQUATIC SCIENTIST Reaction 07/16/2016 Dizziness Latex Unknown Reaction 10/18/2018 Sulfacetamide Sodium 07/04/2007 Vancomycin Dermatologic Reaction Medium 10/12/2018 Red man syndrome documented as of this encounter (statuses as of 01/19/2019) Medications Medication Sig Dispensed Refills Start Date [...] as of this encounter (statuses as of 01/19/2019) Active Problems Problem Noted Date Cervicogenic headache 10/18/2018 Generalized anxiety disorder 09/14/2018 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 History of humerus fracture 08/03/2018 Overview: s/p [facility] 2017 Recurrent major depressive disorder, in partial remission 05/04/2018 History of urethral stricture 11/26/2015 Overview: S/p dilation X3 [place] Dr Wen 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 08/12/2015 Overview: [facility] winter 2014 Benign essential tremor 10/07/2014 Family history of coronary artery disease 08/03/2013 Overview: Mom myocardial infarction in her 50s Osteopenia 02/27/2009 Essential hypertension 02/11/2007 Mixed hyperlipidemia 02/11/2007 documented as of this encounter (statuses as of 01/19/2019) Resolved Problems Problem Noted Date Resolved Date Depression, major, in remission 09/19/2017 05/04/2018 Neck pain 02/11/2007 09/19/2017 Overview: Musculoskeletal chronic Depression with anxiety 02/11/2007 05/04/2018 documented as of this encounter (statuses as of 01/19/2019) Immunizations Name Administration Dates Next Due PNEUMOCOCCAL [...] Sign Reading Time Taken Comments Blood Pressure 136/78 01/19/2019 1:30 PM EDT Pulse 72 01/19/2019 1:30 PM EDT Temperature 36.8 01/19/2019 1:30 PM EDT C (98.2 F) Respiratory Rate - - Oxygen Saturation - - Inhaled Oxygen Concentration - - Weight 75.1 kg (165 lb 8 oz) 01/19/2019 1:30 PM EDT Height 162.6 cm (5' 4") 01/19/2019 1:30 PM EDT Body Mass Index 28.41 01/19/2019 1:30 PM EDT documented in this encounter Patient Instructions Patient InstructionsKanika Johnston NP - 01/19/2019 1:40 PM EDT1. Restart your Miralax daily 2. Refer to [facility] for rectal pain 3. Stop the Anusol as directed 4. Follow up after the above Thank you for choosing the [facility] for your needs today! -Kanika Johnston N.P. , Please call if you need to cancel or change your appt. time. Thank you for choosing [facility] for your health care needs, and for consulting with [facility] [place] today. You may receive a survey following this visit, or after an upcoming hospital stay. As easy as it is to feel overloaded with surveys, we are required to send them out randomly and they do provide important feedback so that we may serve your needs in the best way. Please do take the few minutes required to complete the survey if you receive one. We get them too, after seeing the doctor, and they only take a few minutes to complete. documented in this encounter Progress Notes Kanika Johnston NP - 01/19/2019 1:40 PM EDT PATIENT: Estelle Almanzar : 1940 DATE OF SERVICE: 01/19/2019 REFERRING PRACTITIONER: Selma Bhatia PRIMARY CARE PROVIDER: Jason Coelho CHIEF COMPLAINT: Chief Complaint Patient presents with Hemorrhoids Pt. complaining of worsening hemorrhoidal pain. Constipation Pt. also continues to have constipation. Subjective HISTORY OF PRESENT ILLNESS: Estelle Almanzar is a 78-y.o. female who presents for follow-up of rectal pain , initially thought to be related to hemorrhoids however has failed to respond to typical treatment and now pain has changed. She now reports the sensation of "sitting on a corncob" all the time, and lower anterior pelvic pain which is intermittent. She reports pain will be persistent for several days hen resolve for a dayor two only to return. She does have some intermittent constipation as well which she treats with OTC products, she had been on Miralax but also only uses this prn. She denies dysphagia, fatigue, nausea, vomiting, melena, hematemesis, hematochezia, constipation, diarrhea, jaundice, fevers, chills, night [...] Take 1 Tab by mouth DAILY NEEDED. Nitroglycerin (RECTIV) 0.4 % Rectal Ointment Place [...] Monohydrate] Cephalexin [Keflex] Rash Ciprofloxacin Hcl [Ciloxan] AQUATIC SCIENTIST Reaction Dizziness Latex Unknown Reaction Sulfa [Sulfacetamide Sodium] REVIEW OF SYSTEMS: All remaining review of systems was negative except for as noted in the history of present illness/subjective. Objective PHYSICAL EXAMINATION: VITALS: BP 136/78 | Pulse 72 | Temp 98.2 F (36.8 C) | Ht 5' 4" ( 1.626 m) | Wt 165 lb 8 oz (75.1 kg) | BMI 28.41 kg/m Body mass index is 28.41 kg/m. GENERAL: alert, oriented, no acute distress. LUNGS: clear to auscultation bilaterally. HEART: regular rhythm, no murmurs, no gallops, no rubs. ABDOMEN: general exam: soft, non-tender, non-distended, without masses or organomegaly, normal active bowel sounds, Knowles's sign negative. RECTAL: normal tone, no masses, hemorrhoids: external, non thrombosed, non bleeding. IMPRESSION: ICD-9-CM ICD-10-CM 1. Rectal pain 569.42 K62.89 REFER TO PHYSICAL THERAPY / REHAB I suspect pelvic floor dyssynergy is causing her pelvic, and rectal discomfort and constipation. Will refer to Abdominal and Pelvic PT. Plan PLAN: Patient Instructions 1. Restart your Miralax daily 2. Refer to [facility] for rectal pain 3. Stop the Anusol as directed 4. Follow up after the above Thank you for choosing the [facility] for your needs today! -Kanika Johnston N.P. , Please call if you need to cancel or change your appt. time. Thank you for choosing [facility] for your health care needs, and for consulting with [facility] [place] today. You may receive a survey following this visit, or after an upcoming hospital stay. As easy as it is to feel overloaded with surveys, we are required to send them out randomly and they do provide important feedback so that we may serve your needs in the best way. Please do take the few minutes required to complete the survey if you receive one. We get them too, after seeing the doctor, and they only take a few minutes to complete. Author: Kanika Johnston NP 01/19/2019 14:05 documented in this encounter Plan of Treatment Date Type Specialty Care Team Description 01/22/2019 GI Procedure Gastroenterology June Mathur MD [address] [place] [address] 01/22/2019 Hospital Encounter Anesthesiology June Mathur MD Short Procedure [address] [place] [address] 01/22/2019 Surgery June Mathur MD ENDOSCOPY UPPER GI 1 [place] [place] [id number] 02/05/2019 Ocular Visit Optometry Sami Devries, OD [address] [place] [address] Name Type Priority Associated Diagnoses Order Schedule REFER TO PHYSICAL Referral Routine Rectal pain Expected: 01/19/2019, THERAPY / REHAB Expires: 01/19/2020 Health Maintenance Due Date Last Done Comments [...] Type Problems Progress Blood Pressure Blood Pressure 136/78 No [place], < 140/90 (01/19/2019 Jason Godoy, 1:30 PM EDT) Note: Hypertension Care Plan Based [...] Educational Resources: National Heart, Lung, & Blood [place] http://nhlbi.nih.gov/hbp/index.html The DASH Diet Eating Plan http://www.nhlbi.nih.gov/health/health-topics/ topics/dash/ Academy of Nutrition & DIetetics http://eatright.org National Smoking Cessation Site http://smokefree.gov Blood Pressure < Blood Pressure Essential 136/78 (01/19/2019 No [place], 140/90 hypertension 1:30 PM EDT) Jason Godoy MD Note: Hypertension [...] Educational Resources. record my blood pressure results. Blucarat is safe and secure way for you [...] Educational Resources: National Heart, Lung, & Blood [place] http://nhlbi.nih.gov/hbp/index.html The DASH Diet Eating Plan http://www.nhlbi.nih.gov/health/health-topics/ topics/dash/ Academy of Nutrition & DIetetics http://eatright.org National Smoking Cessation Site http://smokefree.gov Blood Pressure < Blood Pressure 136/78 (01/19/2019 Estelle June FNP 150/90 1:30 PM EDT) Note: This is an individualized [...] depression. Weight loss vs. 18 mo Lifestyle 19.5 (01/19/2019 1:30 PM No Jason Coelho MD max (lbs) [...] of this encounter Implants Implanted Type Area Extractor Tender Raw Stock Device Shelf Model / Serial Identifier Expiration Date / Lot Iol, [id number] 18.0 Diopter - [id number] Right: STORZ [id number] / Implanted: Qty: 1 on 04/05/2016 by Ravin Sena MD at [facility] Eye [id number] / Iol, [id number] 19.0 Diopter - [id number] Left: Eye STORZ [id number] / Implanted: Qty: 1 on 04/26/2016 by Ravin Sena MD at [facility] [id number] / documented as of this encounter Results Not on filedocumented in this encounter Visit Diagnoses Diagnosis Rectal pain - Primary Anal or rectal pain documented in this encounter Insurance Payer Benefit Plan / Subscriber ID Effective Dates Phone Address Type Group MEDICARE MEDICARE PART A xxxxxxxxxxx 2007-Present Medicare & B AET[employer] COMMERCIAL AETNA xxxxxxxxxx 2010-Rust Aetbryce t Guarantor Name Account Type Relation to Date of Phone Billing Patient Address Estelle Almanzar Personal/Family 1940 [address] [facility] [facility] (Home) [facility] (Work) [place] [id number] documented as of this encounter
[2019-02-04 13:04] VITALS: BP 145/65
--- NOTE | 2019-02-04 13:39 | UC ---
Complaint Female HPI - HPI Summary HPI Summary: Pelvic pressure and increased urination x3 days. also assoc w/ headache and feels lightheaded for 2 days. Concerned that she has a UTI. Has Urology on board. Denies back pain or fever. - History Of Current Complaint Chief Complaint: UCGU Stated Complaint: FREQUENT URINATION Time Seen by Provider: 02/04/19 13:36 Hx Obtained From: Patient Pain Intensity: 0 - Allergies/Home Medications Allergies/Adverse Reactions: Allergies Allergy/AdvReac Type Severity Reaction Status Date / Time acetaminophen Allergy Unknown Verified 02/04/19 13:04 [From Tylenol-Codeine #3] Reaction Details amoxicillin Allergy Unknown Verified 02/04/19 13:04 Reaction Details candesartan Allergy Tinnitus Verified 02/04/19 13:04 cefaclor [From Ceclor] Allergy Unknown Verified 02/04/19 13:04 Reaction Details cephalexin Allergy Unknown Verified 02/04/19 13:04 Reaction Details ciprofloxacin Allergy Unknown Verified 02/04/19 13:04 Reaction Details codeine Allergy Unknown Verified 02/04/19 13:04 [From Tylenol-Codeine #3] Reaction Details Influenza Virus Vaccines Allergy Nausea And Verified 02/04/19 13:04 Vomiting latex Allergy Unknown Verified 02/04/19 13:04 Reaction Details Sulfa (Sulfonamide Allergy Blisters Verified 02/04/19 13:04 Antibiotics) sulfacetamide Allergy Rash Verified 02/04/19 13:04 lorazepam [From Ativan] AdvReac Insomnia Verified 02/04/19 13:04 vancomycin AdvReac red man Verified 01/17/19 09:41 syndrome PMH/Surg Hx/FS Hx/Imm Hx GI/ History: Other - constipation Psychological History: Depression Other History Of: Negative For: Anticoagulant Therapy - Surgical History Surgical History: Yes Surgery Procedure, Year, and Place: Tonsillectomy - child. Appendectomy in . kidney Stent placed 07/03/12, removed 07/07/12,. Vaginal cyst removed. left arm fx w/ screws - 2015. left arm surgery, screws replaced - September 2018. bilateral ankle repair - Family History Known Family History: Positive: Cardiac Disease - [place] mother age 50, Hypertension Negative: Diabetes - Social History Alcohol Use: None Substance Use Type: None Smoking Status (MU): Never Smoked Tobacco Have You Smoked in the Last Year: No - Immunization History Most Recent Tetanus Shot: unsure Review of Systems All Other Systems Reviewed And Are Negative: Yes Constitutional: Negative: Fever, Chills Skin: Negative: Rash Genitourinary: Positive: Dysuria, Frequency, Urgency. Negative: Vaginal/Penile Burning, Abnormal Bleeding Neurological: Positive: Headache, Other - dizzy Physical Exam Triage Information Reviewed: Yes Appearance: Well-Appearing Vital Signs: Initial Vital Signs Temp 98.2 F 02/04/19 13:01 Pulse 73 02/04/19 13:01 Resp 18 02/04/19 13:01 BP 145/65 02/04/19 13:01 Pulse Ox 98 02/04/19 13:01 Vital Signs Reviewed: Yes Respiratory Exam: Normal Cardiovascular Exam: Normal Abdomen Description: Positive: Nontender. Negative: CVA Tenderness (R), CVA Tenderness (L) Neurological: Positive: Alert, Other: - CN II-XII Complaint Female Dx - Course Course Of Treatment: UTI SYMPTOMS W/ UA DEMONSTRATING LIKELY UTI. WILL TX, REVIEWED HER ALLERGIES. SENT FOR CX AND HAVE ASKED HER TO DISC THIS EPISODE W/ UROLOGIST. VITALS GOOD. - Differential Dx/Diagnosis Differential Diagnosis/HQI/PQRI: Urinary Tract Infection, Other Provider Diagnosis: UTI (urinary tract infection) Discharge ED - Sign-Out/Discharge Documenting (check all that apply): Patient Departure All imaging exams completed and their final reports reviewed: No Studies - Discharge Plan Condition: Good Disposition: HOME Prescriptions: Nitrofurantoin Macrocrystals* [Macrodantin 100 mg*] 100 mg PO BID 10 Days #20 cap Patient Education Materials: Urinary Tract Infection in Women (DC) Referrals: Jason Coelho MD [Primary Care Provider] - Additional Instructions: Please let your Urologist know about today's visit. - Billing Disposition and Condition Condition: GOOD Disposition: Home
== END 2019-02-04 14:08 | disposition home or self-care (01) ==
LOC: UCEAST 12:35
DX: N39.0 Urinary tract infection, site not specified (principal); F32.9 Major depressive disorder, single episode, unspecified; Z88.5 Allergy status to narcotic agent; Z88.2 Allergy status to sulfonamides; Z91.040 Latex allergy status
CPT/HCPCS: 81003; 87086; 99212; G0463

== ENCOUNTER 2021-09-05 15:40 | Observation (INO) ==
[2021-09-05 16:54] LABS: ABS Basophils 0.1 10^3/ul (0-0.2); ABS Eosinophils 0.2 10^3/ul (0-0.6); ABS Monocytes 0.4 10^3/ul (0-0.8); ABS Neutrophils 3.8 10^3/ul (1.5-7.7); Eosinophil % 4.1 %; Hematocrit 38 % (35-47); Hemoglobin 12.8 g/dL (12.0-16.0); Lymphocyte % 18.4 %; Mean Corpuscular HGB Conc 34 g/dL (31-36); Mean Corpuscular Hemoglobin 30 pg (27-31); Mean Corpuscular Volume 90 fL (80-97); Platelet Count 191 10^3/uL (150-450); Red Blood Count 4.22 10^6 /uL (3.70-4.87); Red Cell Distribution Width 14 % (10-15); White Blood Count 5.6 10^3/uL (3.5-10.8)
[2021-09-05 17:14] LABS: Albumin 4.1 g/dL (3.2-5.2); Albumin/Globulin Ratio 2.3 (1-3); Globulin 1.8 g/dL (2-4); Total Bilirubin 0.3 mg/dL (0.2-1.0); Total Protein 5.9 g/dL (6.4-8.9); eGFR CKD-EPI 61.7 (>60)
[2021-09-05] MEDS ORDERED: Morphine 4 MG/ML VIAL (1 ml) IV ONE ×2 (17:29→21:35)
[2021-09-05] MEDS ORDERED: Nitrofurantoin (monohydrate/macrocrystals) 100 mg CAP PO ONE (19:54)
[2021-09-05] MEDS ORDERED: Lidocaine PATCH 5% PATCH TRANSDERM ONE (22:28)
[2021-09-05 22:33] LABS: Magnesium 2.2 mg/dL (1.9-2.7)
[2021-09-05] MEDS: Enoxaparin 40 MG/0.4 ML SYR SUBCUT SCH (23:16)
[2021-09-05 23:46] LABS: Urine Appearance Clear; Urine Bilirubin Negative (Negative); Urine Blood 1+ (Negative); Urine Color Yellow; Urine Glucose Negative (Negative); Urine Ketones Negative (Negative); Urine Nitrite Negative (Negative); Urine Protein Negative (Negative); Urine Specific Gravity 1.006 (1.002-1.030); Urine Urobilinogen Negative (Negative)
[2021-09-05 23:49] LABS: Urine Bacteria Absent (Absent); Urine Red Blood Cell Trace(0-2/hpf) (Absent); Urine Squamous Epithelial Cell Present (Absent); Urine White Blood Cell Absent (Absent)
[2021-09-06] MEDS ORDERED: ASA-APAP-CAFFEINE ES (NF) TAB PO ONE (03:12)
[2021-09-06] MEDS ORDERED: HYDROcodone/ACETAMIN 5/325 mg TAB PO ONE (03:29)
[2021-09-06] MEDS: Nitrofurantoin (monohydrate/macrocrystals) 100 mg CAP PO SCH ×2 (08:36→20:29)
[2021-09-06] MEDS ORDERED: Ondansetron 4 mg VIAL 2 MG/ML 2 ml VIAL IV PRN (09:34)
[2021-09-06] MEDS: Clindamycin 1% TOPICAL(NF) TOPICAL SCH ×2 (10:22→19:44)
[2021-09-06] MEDS ORDERED: Dibucaine 1% OINT 28.35 GM TUBE PR PRN (14:16)
[2021-09-06] MEDS ORDERED: Olmesartan 40 mg TAB (NF) PO SCH (15:00)
[2021-09-06] MEDS: Dextran 70/Hypromellose Tears Eye Drops 15 ml BTL (for Artificials Tears) BOTH EYES PRN ×2 (16:57→20:22)
[2021-09-06] MEDS: Enoxaparin 40 MG/0.4 ML SYR SUBCUT SCH (20:18)
[2021-09-07] MEDS: Nitrofurantoin (monohydrate/macrocrystals) 100 mg CAP PO SCH (08:43)
[2021-09-07] MEDS: Clindamycin 1% TOPICAL(NF) TOPICAL SCH (09:17)
[2021-09-07] MEDS ORDERED: Polyethylene Glycol 3350 17 GM PACKET PO PRN (10:33)
[2021-09-07 11:34] VITALS: BP 149/74
== END 2021-09-07 16:00 | disposition home or self-care (01) ==
LOC: EDHOLD 15:40 → ED 15:40 → SUATTDRO 22:22 → EDHOLD 09-06 01:23 → MEDTELE 09-06 01:56 → MED 09-07 10:45
PROVIDERS: ADMIT Hospitalist; ATTEND Internal Medicine